=== PATIENT | male | born 1950 | race Caucasian/White ===

== ENCOUNTER 2016-11-23 09:50 | Emergency (ER) | payer MEDICARE, BC ==
[2016-11-23 10:01] VITALS: BP 143/73
--- NOTE | 2016-11-23 10:36 | EDM.PDOC ---
ED HPI RENAL/ - General Chief Complaint: Genitourinary Problem Stated Complaint: DIZZY, BACK PAIN, BURNING WITH URINATION Time Seen by Provider: 11/23/16 10:25 Source of Information: Reports: Patient History Limitations: Reports: No limitations - History of Present Illness INITIAL COMMENTS - FREE TEXT/NARRATIVE: States that for the last week he has noted left low back pain that will radiate into the left groin at times. Pain will at times change with position changes but not all the time. No blood noted in the urine but has noted burning with urination over the last week that seems to be getting worse. Will feel lightheaded and dizzy at times when getting up. No fever that he knows of. No nausea or diarrhea with it. Location: Reports: groin, flank Quality: Reports: burning Associated Symptoms: Reports: burning. Denies: fever/chills, nausea/vomiting, diarrhea - Related Data Allergies/ADRs: Allergies Allergy/AdvReac Type Severity Reaction Status Date / Time Penicillins Allergy Swelling Verified 11/23/16 10:24 Home Meds: Home Meds Allopurinol [Zyloprim] 300 mg PO Q48H 07/20/13 [History] Ascorbic Acid [Vitamin C] 1,000 mg PO DAILY 07/20/13 [History] Aspirin [Adult Low Dose Aspirin EC] 81 mg PO DAILY 07/20/13 [History] Digoxin [Lanoxin] 250 mcg PO DAILY 07/20/13 [History] Etodolac 400 mg PO BID 07/20/13 [History] Lisinopril [Zestril] 2.5 mg PO DAILY 07/20/13 [History] Simvastatin [Zocor] 20 mg PO DAILY 07/20/13 [History] Cholecalciferol (Vitamin D3) [Vitamin D3] 2,000 unit PO DAILY 11/23/16 [History] metFORMIN HCl [Metformin HCl] 500 mg PO BID 11/23/16 [History] Past Medical History HEENT History: Reports: Impaired vision Cardiovascular History: Reports: High cholesterol, Hypertension, Other (see below) Other Cardiovascular History: IRREGULAR HEART BEAT Genitourinary History: Reports: Pyelonephritis Musculoskeletal History: Reports: Gout, Other (see below) Other Musculoskeletal History: ANKYLOSING SPONDYLITIS Endocrine/Metabolic History: Reports: Diabetes, type II - Past Surgical History HEENT Surgical History: Reports: Cataract surgery GI Surgical History: Reports: Colonoscopy, EGD Musculoskeletal Surgical History: Reports: Other (see below) Other Musculoskeletal Surgeries/Procedures:: ELBOW SURGERY Social & Family History - Tobacco Use Smoking Status *Q: Never Smoker Second Hand Smoke Exposure: No - Caffeine Use Caffeine Use: Reports: Coffee - Alcohol Use Days Per Week of Alcohol Use: 0 - Recreational Drug Use Recreational Drug Use: No ED ROS GENERAL - Review of Systems Review Of Systems: See Below Constitutional: Denies: fever HEENT: Denies: Ear discharge, Ear pain, Vision change Respiratory: Denies: Shortness of Breath, Cough Cardiovascular: Reports: Lightheadedness. Denies: Chest pain GI/Abdominal: Reports: Other (see HPI) : Reports: dysuria, flank pain. Denies: hematuria Musculoskeletal: Reports: back pain Skin: Denies: rash ED EXAM, RENAL/ - Physical Exam Exam: See Below Exam Limited By: No limitations General Appearance: alert, WD/WN, mild distress Ears: normal external exam, normal canal, normal TMs Nose: normal inspection Throat/Mouth: Normal inspection, Normal oropharynx, No airway compromise Head: atraumatic, normocephalic Neck: normal inspection, supple, non-tender, full range of motion Respiratory/Chest: no respiratory distress, lungs clear, normal breath sounds Cardiovascular: normal peripheral pulses, regular rate, rhythm, no murmur GI/Abdominal: normal bowel sounds, soft, non tender, no organomegaly. No: guarding, rebound, tender Back Exam: normal inspection, full range of motion, other (tender to the lower right back with some radiation to the right lower abdomen and groin at times.) Extremities: normal inspection, non-tender, no pedal edema, normal capillary refill Neurological: alert, oriented Skin Exam: Warm, Dry, Intact Course - Vital Signs Last Recorded V/S: Last Vital Signs Temp 96.8 F 11/23/16 09:55 Pulse 56 L 11/23/16 09:55 Resp 16 11/23/16 09:55 BP 143/73 H 11/23/16 09:55 Pulse Ox 98 11/23/16 09:55 - Orders/Labs/Meds Orders: Active Orders 24 hr Category Date Time Status BASIC METABOLIC PANEL,BMP [CHEM] Stat Lab 11/23/16 10:11 Ordered CBC WITH AUTO DIFF [HEME] Stat Lab 11/23/16 10:11 Ordered CREATINE KINASE,CK [CHEM] Stat Lab 11/23/16 10:11 Ordered TROPONIN I [CHEM] Stat Lab 11/23/16 10:11 Ordered UA W/MICROSCOPIC [URIN] Stat Lab 11/23/16 10:03 Ordered EKG 12 Lead [EK] Routine Ther 11/23/16 10:11 Ordered Departure - Departure Time of Disposition: 10:55 Disposition: Home, Self-Care 01 Condition: good Clinical Impression: Back muscle spasm Referrals: PCP,None [Primary Care Provider] - Forms: ED Department Discharge Additional Instructions: Appt with Physical therapy at 1 Use the muscle relaxants that you have at home Recheck with the eye DrGold to adjust glasses Follow up in the clinic if not improved after above - My Orders Last 24 Hours: My Active Orders 11/23/16 10:03 UA W/MICROSCOPIC [URIN] Stat 11/23/16 10:11 BASIC METABOLIC PANEL,BMP [CHEM] Stat CBC WITH AUTO DIFF [HEME] Stat CREATINE KINASE,CK [CHEM] Stat TROPONIN I [CHEM] Stat EKG 12 Lead [EK] Routine - Assessment/Plan Last 24 Hours: My Active Orders 11/23/16 10:03 UA W/MICROSCOPIC [URIN] Stat 11/23/16 10:11 BASIC METABOLIC PANEL,BMP [CHEM] Stat CBC WITH AUTO DIFF [HEME] Stat CREATINE KINASE,CK [CHEM] Stat TROPONIN I [CHEM] Stat EKG 12 Lead [EK] Routine
[2016-11-23 10:41] LABS: CHLORIDE,CL 106 mEq/L (98-106); SODIUM,NA 141 mEq/L (136-145)
== END 2016-11-23 11:00 | disposition home or self-care (01) ==
LOC: CC.ED 09:50
DX: M62.830 Muscle spasm of back (principal); E78.00 Pure hypercholesterolemia, unspecified; I10 Essential (primary) hypertension; E11.9 Type 2 diabetes mellitus without complications; Z88.0 Allergy status to penicillin; Z79.82 Long term (current) use of aspirin; Z79.899 Other long term (current) drug therapy; Z98.49 Cataract extraction status, unspecified eye
CPT/HCPCS: 36415; 80048; 81001; 82550; 84484; 85025; 93005; 93010; 99284

== ENCOUNTER 2017-10-18 18:42 | Observation (INO) | payer MEDICARE, BC ==
[2017-10-18 19:18] LABS: CHLORIDE,CL 104 mEq/L (98-106); SODIUM,NA 143 mEq/L (136-145)
--- NOTE | 2017-10-18 19:20 | EDM.PDOC ---
ED HPI GENERAL MEDICAL PROBLEM - General Chief Complaint: Respiratory Problem Stated Complaint: sob Time Seen by Provider: 10/18/17 19:00 Source of Information: Reports: Patient History Limitations: Reports: No Limitations - History of Present Illness INITIAL COMMENTS - FREE TEXT/NARRATIVE: Patient presents to ER with complaints of tightness in his chest and shortness of breath. States has had intermittent episodes today where he feels a tightness in his upper chest and can't get enough air in. He denies radiation of the pain. No increase in edema. Has not had much for sinus congestion or cough. Has been sneezing more than usual. Had an EKG done in July at the [facility] which did show sinus bradycardia. Did a digoxin level at that time which was normal. Patient has been on digoxin for "30 years" for atrial fib as he declined going on Coumadin. States the [facility] does not support. Was advised to watch his pulse, blood pressure and follow up with PCP. He states it has been stable. No nausea/vomiting/diarrhea or constipation. No urinary concerns. Onset: Gradual Duration: Waxing/Waning Location: Reports: Chest Quality: Reports: Pressure Severity: Mild Associated Symptoms: Reports: Chest Pain, Shortness of Breath. Denies: Cough, Headaches, Loss of Appetite, Nausea/Vomiting - Related Data Allergies Allergy/AdvReac Type Severity Reaction Status Date / Time Penicillins Allergy Swelling Verified 10/18/17 18:54 Home Meds: Home Meds Allopurinol [Zyloprim] 300 mg PO Q48H 07/20/13 [History] Ascorbic Acid [Vitamin C] 1,000 mg PO DAILY 07/20/13 [History] Aspirin [Adult Low Dose Aspirin EC] 81 mg PO DAILY 07/20/13 [History] Digoxin [Lanoxin] 250 mcg PO DAILY 07/20/13 [History] Etodolac 400 mg PO BID 07/20/13 [History] Lisinopril [Zestril] 2.5 mg PO DAILY 07/20/13 [History] Simvastatin [Zocor] 20 mg PO DAILY 07/20/13 [History] Cholecalciferol (Vitamin D3) [Vitamin D3] 2,000 unit PO DAILY 11/23/16 [History] metFORMIN HCl [Metformin HCl] 500 mg PO BID 11/23/16 [History] Past Medical History HEENT History: Reports: Impaired Vision Cardiovascular History: Reports: High Cholesterol, Hypertension, Other (See Below) Other Cardiovascular History: IRREGULAR HEART BEAT Genitourinary History: Reports: Pyelonephritis Musculoskeletal History: Reports: Gout, Other (See Below) Other Musculoskeletal History: ANKYLOSING SPONDYLITIS Endocrine/Metabolic History: Reports: Diabetes, Type II - Past Surgical History HEENT Surgical History: Reports: Cataract Surgery GI Surgical History: Reports: Colonoscopy, EGD Musculoskeletal Surgical History: Reports: Other (See Below) Social & Family History - Tobacco Use Smoking Status *Q: Never Smoker Second Hand Smoke Exposure: No - Caffeine Use Caffeine Use: Reports: Coffee, Soda - Alcohol Use Days Per Week of Alcohol Use: 0 - Recreational Drug Use Recreational Drug Use: No ED ROS GENERAL - Review of Systems Review Of Systems: See Below Constitutional: Denies: Fever, Chills, Malaise, Weakness, Decreased Appetite HEENT: Reports: Rhinitis. Denies: Ear Pain, Sinus Problem, Throat Pain, Vertigo Respiratory: Reports: Shortness of Breath. Denies: Wheezing, Cough Cardiovascular: Reports: Chest Pain, Edema. Denies: Lightheadedness Endocrine: Denies: Fatigue GI/Abdominal: Denies: Abdominal Pain, Constipation, Diarrhea, Nausea, Vomiting : Reports: No Symptoms Musculoskeletal: Reports: No Symptoms Skin: Reports: No Symptoms Neurological: Reports: No Symptoms Psychiatric: Reports: No Symptoms ED EXAM, GENERAL - Physical Exam Exam: See Below Exam Limited By: No Limitations General Appearance: Alert, WD/WN, No Apparent Distress Ears: Normal External Exam, Normal TMs Nose: Normal Inspection, Normal Mucosa, No Blood Throat/Mouth: Normal Inspection, Normal Oropharynx Head: Normocephalic Neck: Normal Inspection, Supple, Non-Tender Respiratory/Chest: No Respiratory Distress, Lungs Clear, Normal Breath Sounds Cardiovascular: Regular Rate, Rhythm GI/Abdominal: Normal Bowel Sounds, Soft, Non-Tender Extremities: Normal Inspection, No Pedal Edema Neurological: Alert, Oriented Psychiatric: Normal Affect, Normal Mood Skin Exam: Warm, Dry Course - Vital Signs Last Recorded V/S: Last Vital Signs Temp 97.5 F 10/18/17 18:45 Pulse 51 L 10/18/17 19:41 Resp 18 10/18/17 18:45 BP 172/86 H 10/18/17 19:41 Pulse Ox 97 10/18/17 19:13 - Orders/Labs/Meds Orders: Active Orders 24 hr Category Date Time Status EKG Documentation Completion [RC] STAT Care 10/18/17 18:51 Active Chest 2V [CR] Stat Exams 10/18/17 18:53 Taken Labs: Laboratory Tests 10/18/17 10/18/17 10/18/17 Range/Units 18:45 18:45 18:45 WBC 6.8 (5.0-10.0) 10^3/uL RBC 4.94 (4.50-6.00) 10^6/uL Hgb 14.1 (14.0-18.0) g/dL Hct 43.2 (40.0-54.0) % MCV 87.4 (82.0-94.0) fL MCH 28.5 (27.0-32.0) pg MCHC 32.6 L (33.0-38.0) g/dL RDW Coeff of Twan 14.3 (11.0-15.0) % Plt Count 127 L (150-400) 10^3/uL Neut % (Auto) 65.8 (35-85) % Lymph % (Auto) 22.7 (10-55) % Morgan % (Auto) 7.8 (0-16) % Eos % (Auto) 3.4 (0-5) % Baso % (Auto) 0.3 (0-3) % Neut # (Auto) 4.46 (1.80-7.00) 10^3/uL Lymph # (Auto) 1.54 (1.00-4.80) 10^3/uL Morgan # (Auto) 0.53 (0.00-0.80) 10^3/uL Eos # (Auto) 0.23 (0.00-0.45) 10^3/uL Baso # (Auto) 0.02 10^3/uL PT 9.5 L (9.7-12.3) SEC INR 0.91 L (0.92-1.18) APTT 24.7 (24.5-30.9) SEC D-Dimer, Quantitative 0.38 (0.00-0.50) Sodium 143 (136-145) mEq/L Potassium 4.0 (3.5-5.0) mEq/L Chloride 104 (98-106) mEq/L Carbon Dioxide 30 (21-32) mmol/L BUN 26 H (7-18) mg/dL Creatinine 1.1 (0.7-1.3) mg/dL Est Cr Clr Drug Dosing 99.62 mL/min Estimated GFR (MDRD) > 60 (>=60) mL/min Glucose 164 H D (75-99) mg/dL Calcium 8.6 (8.4-10.1) mg/dL Lactate Dehydrogenase 121 (100-190) U/L Creatine Kinase 82 (35-232) U/L Troponin I < 0.017 (0.00-0.06) ng/mL NT-Pro-B Natriuret Pep 59 (0-1000) pg/mL Digoxin (0.9-2.0) ng/mL 10/18/17 Range/Units 19:02 WBC (5.0-10.0) 10^3/uL RBC (4.50-6.00) 10^6/uL Hgb (14.0-18.0) g/dL Hct (40.0-54.0) % MCV (82.0-94.0) fL MCH (27.0-32.0) pg MCHC (33.0-38.0) g/dL RDW Coeff of Twan (11.0-15.0) % Plt Count (150-400) 10^3/uL Neut % (Auto) (35-85) % Lymph % (Auto) (10-55) % Morgan % (Auto) (0-16) % Eos % (Auto) (0-5) % Baso % (Auto) (0-3) % Neut # (Auto) (1.80-7.00) 10^3/uL Lymph # (Auto) (1.00-4.80) 10^3/uL Morgan # (Auto) (0.00-0.80) 10^3/uL Eos # (Auto) (0.00-0.45) 10^3/uL Baso # (Auto) 10^3/uL PT (9.7-12.3) SEC INR (0.92-1.18) APTT (24.5-30.9) SEC D-Dimer, Quantitative (0.00-0.50) Sodium (136-145) mEq/L Potassium (3.5-5.0) mEq/L Chloride (98-106) mEq/L Carbon Dioxide (21-32) mmol/L BUN (7-18) mg/dL Creatinine (0.7-1.3) mg/dL Est Cr Clr Drug Dosing mL/min Estimated GFR (MDRD) (>=60) mL/min Glucose (75-99) mg/dL Calcium (8.4-10.1) mg/dL Lactate Dehydrogenase (100-190) U/L Creatine Kinase (35-232) U/L Troponin I (0.00-0.06) ng/mL NT-Pro-B Natriuret Pep (0-1000) pg/mL Digoxin 0.7 L (0.9-2.0) ng/mL - Re-Assessments/Exams Free Text/Narrative Re-Assessment/Exam: 10/18/17 Labs are negative at this time. Note marked bradycardia and hypertension. Will admit observation and repeat cardiac enzymes at 2300 and in am. Hold digoxin. Consider stress test. Departure - Departure Time of Disposition: 19:47 Disposition: Refer to Observation Condition: Good Clinical Impression: Chest pain, Bradycardia - Discharge Information Referrals: Palma Velazquez PA [Primary Care Provider] - Forms: ED Department Discharge - Problem List & Annotations (1) Bradycardia SNOMED Code(s): 74648284 Code(s): R00.1 - BRADYCARDIA, UNSPECIFIED Status: Acute Priority: High (2) Chest pain SNOMED Code(s): 41200462 Code(s): R07.9 - CHEST PAIN, UNSPECIFIED Status: Acute Priority: High - Problem List Review Problem List Initiated/Reviewed/Updated: Yes - My Orders Last 24 Hours: My Active Orders 10/18/17 18:51 EKG Documentation Completion [RC] STAT 10/18/17 18:53 Chest 2V [CR] Stat - Assessment/Plan Admission H&P: Please use this note as an admission H&P Last 24 Hours: My Active Orders 10/18/17 18:51 EKG Documentation Completion [RC] STAT 10/18/17 18:53 Chest 2V [CR] Stat Assessment:: Chest Pain Bradycardia Plan: Patient admitted to observation for chest pain and repeat cardiac enzymes at 2300 tonight and in am. Hold digoxin. Consider stress test. Amlodipine 5 mg dose tonight for blood pressure.
[2017-10-18] MEDS ORDERED: Sodium Chloride 0.9% 10 ML Syringe FLUSH PRN (22:13)
[2017-10-18] MEDS ORDERED: Ondansetron 4 MG Tab.DIS PO PRN (22:13)
[2017-10-18] MEDS ORDERED: Ondansetron 4 MG/2 ML SDV IV PRN (22:13)
[2017-10-18] MEDS ORDERED: **PTOM** Allopurinol 300 MG Tab PO SCH (22:13)
[2017-10-18] MEDS ORDERED: Magnesium Hydroxide 400 MG/5 ML Susp 30 ML Cup PO PRN (22:13)
[2017-10-18] MEDS ORDERED: Acetaminophen 325 MG Tab PO PRN (22:13)
[2017-10-18] MEDS ORDERED: Morphine 2 MG/ML Syringe IVPUSH PRN (22:13)
[2017-10-18] MEDS ORDERED: Temazepam 15 MG Cap PO PRN (22:13)
[2017-10-19 07:16] VITALS: BP 139/72
[2017-10-19] MEDS ORDERED: **PTOM** Cholecalciferol (Vitamin D3) 1,000 Unit Tab PO SCH (08:00)
[2017-10-19] MEDS ORDERED: LISINOPRIL 5 MG PO SCH (08:00)
[2017-10-19] MEDS ORDERED: **PTOM** metFORMIN 500 MG Tab PO SCH (08:00)
[2017-10-19] MEDS ORDERED: ASCORBIC ACID 500 MG PO SCH (08:00)
[2017-10-19] MEDS ORDERED: **PTOM** Aspirin 81 MG Tab.EC PO SCH (08:00)
[2017-10-19] MEDS ORDERED: ETODOLAC 400 MG PO SCH (08:00)
[2017-10-19] MEDS ORDERED: SIMVASTATIN 20 MG PO SCH (08:00)
--- NOTE | 2017-10-19 12:22 | PCM.DCSUM1 ---
Discharge Summary - Hospital Course Free Text/Narrative:: Patient presented to ED last evening with chest tightness and shortness of breath. States felt like couldn't "get enough air in". Patient was noted to be in marked bradycardia. Has been on digoxin for years and notes over the last few months, pulse has been running in the 50s but has tolerated this well. Had an EKG in July with his provider at the [facility] and noted rate of 50 at that time, dig level was normal. Advised to follow this trend. Continues to have a rate in the 50s and a normal BP. However, he has not experienced this type of discomfort or shortness of breath until today. Initial cardiac work up in the ER was negative. Systolic blood pressure high. Admitted for serial enzymes, telemetry, held digoxin. - Discharge Data Discharge Date: 10/19/17 Discharge Disposition: Home, Self-Care 01 Condition: Good - Discharge Diagnosis/Problem(s) (1) Bradycardia SNOMED Code(s): 77190188 ICD Code: R00.1 - BRADYCARDIA, UNSPECIFIED Status: Acute Priority: High (2) Chest pain SNOMED Code(s): 81444682 ICD Code: R07.9 - CHEST PAIN, UNSPECIFIED Status: Acute Priority: High - Patient Summary/Data Complications: none Hospital Course: Patient denies chest pain now this am except with movement. No further shortness of breath. Cardiac monitoring has continued to show bradycardia. Blood pressure has improved, now normotensive. He has been up and around in the room and tolerated well. Labs continue to show normal cardiac enzymes. EKG unchanged. Did require oxygen during the night, patient without his CPAP machine. Will discharge home. Hold digoxin for marked bradycardia as was initially placed on this for atrial fib and has not been noted to have this rhythm. Cardiolyte stress test next , follow up in clinic fo results and reevaluation of heart rate after. - Patient Instructions Diet: Diabetic Diet Activity: As Tolerated Other/Special Instructions: Cardiolyte stress test next October [address] Rhodes - Discharge Plan Home Medications: Home Meds Allopurinol [Zyloprim] 300 mg PO Q48H 07/20/13 [History] Ascorbic Acid [Vitamin C] 1,000 mg PO DAILY 07/20/13 [History] Aspirin [Adult Low Dose Aspirin EC] 81 mg PO DAILY 07/20/13 [History] Etodolac 400 mg PO BID 07/20/13 [History] Lisinopril [Zestril] 2.5 mg PO DAILY 07/20/13 [History] Simvastatin [Zocor] 20 mg PO DAILY 07/20/13 [History] Cholecalciferol (Vitamin D3) [Vitamin D3] 2,000 unit PO DAILY 11/23/16 [History] metFORMIN HCl [Metformin HCl] 500 mg PO BID 11/23/16 [History] Forms: ED Department Discharge Referrals: Palma Velazquez PA [Primary Care Provider] - (Follow up in 2 weeks with [facility]) - Discharge Summary/Plan Comment DC Time >30 min.: No Discharge Summary/Plan Comment: Discharge home Hold digoxin Cardiolyte next week Follow up in clinic after - General Info Date of Service: 10/19/17 Admission Dx/Problem (Free Text: Bradycardia Chest Pain Functional Status: Reports: Pain Controlled, Tolerating Diet, Ambulating - Review of Systems General: Denies: Fever, Weakness, Fatigue HEENT: Reports: No Symptoms Pulmonary: Denies: Shortness of Breath, Cough Cardiovascular: Reports: Chest Pain. Denies: Edema, Lightheadedness Gastrointestinal: Denies: Abdominal Pain, Nausea, Vomiting Genitourinary: Reports: No Symptoms Musculoskeletal: Reports: No Symptoms Skin: Reports: No Symptoms Neurological: Reports: No Symptoms - Patient Data Vitals - Most Recent: Last Vital Signs Temp 96.9 F 10/19/17 07:13 Pulse 47 L 10/19/17 07:13 Resp 20 10/19/17 07:13 BP 139/72 10/19/17 07:13 Pulse Ox 99 10/19/17 07:13 Weight - Most Recent: 245 lb Lab Results - Last 24 hrs: Laboratory Results - last 24 hr 10/18/17 10/19/17 Range/Units 22:20 07:15 Lactate Dehydrogenase 120 108 (100-190) U/L Creatine Kinase 77 65 (35-232) U/L Troponin I < 0.017 < 0.017 (0.00-0.06) ng/mL Med Orders - Current: Current Medications Discontinued Medications Acetaminophen (Tylenol) 650 mg PO Q4H PRN PRN Reason: Pain (Mild 1-3)/fever Allopurinol (Zyloprim) 300 mg PO Q48H DANNY Last Admin: 10/18/17 22:23 Dose: Not Given Ascorbic Acid (Vitamin C) 1,000 mg PO DAILY [facility] Last Admin: 10/19/17 08:32 Dose: 1,000 mg Aspirin (Halfprin) 81 mg PO DAILY [facility] Last Admin: 10/19/17 08:31 Dose: 81 mg Cholecalciferol (Vitamin D3) 2,000 units PO DAILY [facility] Last Admin: 10/19/17 08:29 Dose: 2,000 units Lisinopril (Prinivil) 2.5 mg PO DAILY [facility] Last Admin: 10/19/17 08:31 Dose: 2.5 mg Magnesium Hydroxide (Milk Of Magnesia) 30 ml PO Q12H PRN PRN Reason: Constipation Metformin HCl (Glucophage) 500 mg PO BIDMEALS [facility] Last Admin: 10/19/17 08:30 Dose: 500 mg Morphine Sulfate (Morphine) 1 - 2 mg IVPUSH Q2H PRN PRN Reason: Pain (severe 7-10) Ptom Etodolac [ (Etodolac] 400 Mg) 400 mg PO BID [facility] Last Admin: 10/19/17 08:32 Dose: 400 mg Ondansetron HCl (Zofran Odt) 4 mg PO Q4H PRN PRN Reason: nausea, able to take PO Ondansetron HCl (Zofran) 4 mg IV Q4H PRN PRN Reason: Nausea/Vomiting Simvastatin (Zocor) 20 mg PO DAILY [facility] Last Admin: 10/19/17 08:30 Dose: 20 mg Sodium Chloride (Saline Flush) 10 ml FLUSH ASDIRECTED PRN PRN Reason: Keep Vein Open Temazepam (Restoril) 15 mg PO BEDTIME PRN PRN Reason: Sleep - Exam General: Reports: Alert, Oriented HEENT: Reports: Mucous Membr. Moist/[place] Neck: Reports: Supple Lungs: Reports: Clear to Auscultation, Normal Respiratory Effort Cardiovascular: Reports: Regular Rhythm, Bradycardia GI/Abdominal Exam: Normal Bowel Sounds, Soft, Non-Tender Extremities: No Pedal Edema Skin: Reports: Warm, Dry Neurological: Reports: No New Focal Deficit *Q Meaningful Use (DIS) - VTE *Q VTE Criteria *Q: - Stroke *Q Stroke Criteria *Q: - AMI *Q AMI Criteria *Q:
== END 2017-10-19 10:35 | disposition home or self-care (01) ==
LOC: CC.ED 18:42 → CC.MS 19:40 → CC.ED 19:40 → UNDOADMOB 19:40 → CC.MS 22:13
PROVIDERS: ADMIT Physician Assistant Medical; ATTEND Family Medicine
DX: R00.1 Bradycardia, unspecified (principal); R07.9 Chest pain, unspecified; I10 Essential (primary) hypertension; E78.00 Pure hypercholesterolemia, unspecified; E11.9 Type 2 diabetes mellitus without complications; Z79.82 Long term (current) use of aspirin; Z79.899 Other long term (current) drug therapy; Z88.0 Allergy status to penicillin
CPT/HCPCS: 36415; 71046; 80048; 80162; 82550; 83615; 83880; 84484; 85025; 85379; 85610; 85730; 93005; 99285; A9270-GY; G0378

== ENCOUNTER → 2018-09-02 | Day surgery (SDC) | payer MEDICARE, BC ==
[~2018-09-02] MED LIST: Glycopyrrolate 0.2 MG/ML SDV IVPUSH ONE; Propofol 200 MG/20 ML SDV IV ONE; ePHEDrine 50 MG/ML SDV IV ONE
[2018-09-02] MEDS: Lactated Ringers 1,000 ML IV SCH (08:24)
[2018-09-02 10:13] VITALS: BP 142/75
--- NOTE | 2018-09-02 11:24 | OR ---
DATE OF OPERATION: 09/02/2018 PREOPERATIVE DIAGNOSIS: FAMILY HISTORY OF COLON CANCER. POSTOPERATIVE DIAGNOSIS: FAMILY HISTORY OF COLON CANCER. SURGEON: Diego Rhodes MD PROCEDURE: FULL-LENGTH COLONOSCOPY. 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 COMPLICATIONS: None. SPECIMEN: None. FINDINGS: 1. Full-length colonoscopy. 2. Mild sigmoid diverticulosis. RECOMMENDATIONS: Followup colonoscopy every 5 years. INDICATIONS: The patient has a family history of colon cancer. His last colonoscopy was just over 5 years ago. DESCRIPTION OF PROCEDURE: The patient was prepped and draped, placed in the left lateral decubitus position. A lubricated Olympus colonoscope was inserted and easily advanced to the cecum. Direct visualization of the ileocecal valve and appendiceal orifice was accomplished. Bowel prep was fine. Upon withdrawal of the scope, throughout the entire length of the colon, I could find no signs of any polyps, mass, ulceration, or bleeding sites. No vascular abnormalities or signs of colitis. There were scattered diverticula in the sigmoid area, mild in severity. The rectal vault was benign. Retroflexion was unable to be accomplished due to the volume of stool in the rectum and we could not suction most of this due to most of it being solid, however, the rest of the colon had an adequate prep. Air was suctioned, scope removed without complication. DENIA/SHORTY /[id number]
== END ==
LOC: CC.SDS 07:31
PROVIDERS: ATTEND Family Medicine
DX: Z12.11 Encounter for screening for malignant neoplasm of colon (principal); K57.30 Diverticulosis of large intestine without perforation or abscess without bleeding; Z80.0 Family history of malignant neoplasm of digestive organs
CPT/HCPCS: 93005; J7120

== ENCOUNTER 2018-10-20 16:00 | Emergency (ER) | payer MEDICARE, BC ==
--- NOTE | 2018-10-20 17:27 | EDM.PDOC ---
ED HPI GENERAL MEDICAL PROBLEM - General Chief Complaint: General Stated Complaint: headache, sob Time Seen by Provider: 10/20/18 16:40 Source of Information: Reports: Patient, Family () - History of Present Illness INITIAL COMMENTS - FREE TEXT/NARRATIVE: states that at 0330 this AM he was up to the BR without any problems and was fine. sort time later his stomach was upset. about 1000 this AM he had normal BM and abd pain went away. He since has not ate or drank anything today as she didn't want to have to vomit if the abdominal pain came back. Feels SOB and lightheaded. Had 2 episodes of chest pain that lasted "seconds". He has not vomited. Also states that he has been getting headaches the last 2-3 days which is unusual for him. He denies any visual changes with it. States it is throbbing. When laying down he did state that the posterior headache did go away but still had the frontal sinus headache that he gets at times. Onset: Today Location: Reports: Generalized Head Pain Score (Numeric/FACES): 9 - Related Data Allergies Allergy/AdvReac Type Severity Reaction Status Date / Time Penicillins Allergy Swelling Verified 10/20/18 16:35 Home Meds: Home Meds Allopurinol [Zyloprim] 300 mg PO Q48H 07/20/13 [History] Ascorbic Acid [Vitamin C] 1,000 mg PO DAILY 07/20/13 [History] Aspirin [Adult Low Dose Aspirin EC] 81 mg PO DAILY 07/20/13 [History] Etodolac 400 mg PO BID 07/20/13 [History] Lisinopril [Zestril] 2.5 mg PO DAILY 07/20/13 [History] Simvastatin [Zocor] 20 mg PO DAILY 07/20/13 [History] Cholecalciferol (Vitamin D3) [Vitamin D3] 2,000 unit PO DAILY 11/23/16 [History] metFORMIN HCl [Metformin HCl] 500 mg PO BID 11/23/16 [History] Cyanocobalamin (Vitamin B-12) [Vitamin B-12] 100 mcg PO DAILY 08/30/18 [History] Hydrocortisone [Procto-Med Hc] 1 applic RECTAL ASDIRECTED 08/30/18 [History] Past Medical History HEENT History: Reports: Impaired Vision Cardiovascular History: Reports: High Cholesterol, Hypertension Other Cardiovascular History: IRREGULAR HEART BEAT Respiratory History: Reports: Sleep Apnea Other Respiratory History: cpap Gastrointestinal History: Reports: Diverticulosis Other Gastrointestinal History: has been hospitalized d/t twisting of bowel Genitourinary History: Reports: Pyelonephritis Musculoskeletal History: Reports: Gout, Other (See Below) Other Musculoskeletal History: ANKYLOSING SPONDYLITIS Endocrine/Metabolic History: Reports: Diabetes, Type II Dermatologic History: Reports: Other (See Below) Other Dermatologic History: lumpectomy of left armpit area - Past Surgical History HEENT Surgical History: Reports: Cataract Surgery GI Surgical History: Reports: Colonoscopy, EGD Musculoskeletal Surgical History: Reports: Other (See Below) Social & Family History - Family History Family Medical History: Noncontributory - Tobacco Use Smoking Status *Q: Never Smoker - Caffeine Use Caffeine Use: Reports: Soda - Recreational Drug Use Recreational Drug Use: No - Living Situation & Occupation Living situation: Reports: , with Spouse Occupation: Retired ED ROS GENERAL - Review of Systems Review Of Systems: See Below Constitutional: Reports: Weakness. Denies: Fever, Chills HEENT: Reports: No Symptoms. Denies: Vision Change Respiratory: Reports: Shortness of Breath. Denies: Cough Cardiovascular: Reports: Other (see HPI) Endocrine: Reports: No Symptoms GI/Abdominal: Reports: Other (see HPI) : Reports: No Symptoms Musculoskeletal: Reports: Back Pain Skin: Reports: No Symptoms Neurological: Reports: Headache, Weakness ED EXAM, GENERAL - Physical Exam Exam: See Below Exam Limited By: No Limitations General Appearance: Alert, WD/WN, Mild Distress Eye Exam: Bilateral Eye: PERRL Ears: Normal External Exam, Normal Canal Nose: Normal Inspection Throat/Mouth: Normal Inspection, Normal Oropharynx, No Airway Compromise Head: Atraumatic, Normocephalic Neck: Normal Inspection, Supple, Non-Tender, Full Range of Motion Respiratory/Chest: No Respiratory Distress, Lungs Clear, Normal Breath Sounds, Chest Non-Tender Cardiovascular: Regular Rate, Rhythm, No Edema GI/Abdominal: Normal Bowel Sounds, Soft, Non-Tender, No Organomegaly. No: Guarding, Rigid Back Exam: Normal Inspection, Full Range of Motion Extremities: Normal Inspection, Non-Tender, No Pedal Edema, Normal Capillary Refill Neurological: Alert, Oriented Skin Exam: Warm, Dry, Intact Course - Vital Signs Last Recorded V/S: Last Vital Signs Temp 101.1 F H 10/20/18 18:40 Pulse 100 10/20/18 19:19 Resp 20 10/20/18 19:19 BP 114/72 10/20/18 19:19 Pulse Ox 93 L 10/20/18 19:19 - Orders/Labs/Meds Orders: Active Orders 24 hr Category Date Time Status EKG Documentation Completion [RC] STAT Care 10/20/18 16:38 Active Ang Chest [CT] Stat Exams 10/20/18 17:38 Taken Chest 2V [CR] Stat Exams 10/20/18 16:36 Taken Sodium Chloride 0.9% [Normal Saline] 1,000 ml Med 10/20/18 17:30 Active IV ASDIRECTED Medication Orders Sodium Chloride (Normal Saline) 1,000 mls @ 100 mls/hr IV ASDIRECTED DANNY Last Admin: 10/20/18 17:42 Dose: 100 mls/hr Labs: Laboratory Tests 10/20/18 10/20/18 10/20/18 Range/Units 16:37 16:37 16:37 WBC 11.6 H (5.0-10.0) 10^3/uL RBC 5.64 (4.50-6.00) 10^6/uL Hgb 16.6 (14.0-18.0) g/dL Hct 49.8 (40.0-54.0) % MCV 88.3 (82.0-94.0) fL MCH 29.4 (27.0-32.0) pg MCHC 33.3 (33.0-38.0) g/dL RDW Coeff of Twan 14.6 (11.0-15.0) % Plt Count 144 L (150-400) 10^3/uL Neut % (Auto) 93.5 H (35-85) % Lymph % (Auto) 1.4 L (10-55) % [place] % (Auto) 4.9 (0-16) % Eos % (Auto) 0.1 (0-5) % Baso % (Auto) 0.1 (0-3) % Neut # (Auto) 10.84 H (1.80-7.00) 10^3/uL Lymph # (Auto) 0.16 L (1.00-4.80) 10^3/uL [place] # (Auto) 0.57 (0.00-0.80) 10^3/uL Eos # (Auto) 0.01 (0.00-0.45) 10^3/uL Baso # (Auto) 0.01 10^3/uL PT 10.3 (9.7-12.3) SEC INR 0.99 (0.92-1.18) D-Dimer, Quantitative 1.81 H (0.00-0.50) Sodium 143 (136-145) mEq/L Potassium 4.5 (3.5-5.0) mEq/L Chloride 105 (98-106) mEq/L Carbon Dioxide 27 (21-32) mmol/L BUN 32 H (7-18) mg/dL Creatinine 1.2 (0.7-1.3) mg/dL Est Cr Clr Drug Dosing 60.08 mL/min Estimated GFR (MDRD) 60 (>=60) mL/min Glucose 161 H D (75-99) mg/dL Calcium 8.5 (8.4-10.1) mg/dL Lactate Dehydrogenase 140 (100-190) U/L Creatine Kinase 119 (35-232) U/L Troponin I (0.00-0.06) ng/mL C-Reactive Protein 6.4 H (0.2-0.8) mg/dL Urine Color (YELLOW) Urine Appearance (CLEAR) Urine pH (4.5-8.0) Ur Specific [place] (1.003-1.020) Urine Protein (NEGATIVE) mg/dL Urine Glucose (UA) (NEGATIVE) mg/dL Urine Ketones (NEGATIVE) mg/dL Urine Occult Blood (NEGATIVE) Urine Nitrite (NEGATIVE) Urine Bilirubin (NEGATIVE) Urine Urobilinogen (0.2-1.0) EU/dL Ur Leukocyte Esterase (NEGATIVE) Urine RBC (0-5) /HPF Urine WBC (0-5) /HPF 10/20/18 10/20/18 Range/Units 17:11 17:42 WBC (5.0-10.0) 10^3/uL RBC (4.50-6.00) 10^6/uL Hgb (14.0-18.0) g/dL Hct (40.0-54.0) % MCV (82.0-94.0) fL MCH (27.0-32.0) pg MCHC (33.0-38.0) g/dL RDW Coeff of Twan (11.0-15.0) % Plt Count (150-400) 10^3/uL Neut % (Auto) (35-85) % Lymph % (Auto) (10-55) % [place] % (Auto) (0-16) % Eos % (Auto) (0-5) % Baso % (Auto) (0-3) % Neut # (Auto) (1.80-7.00) 10^3/uL Lymph # (Auto) (1.00-4.80) 10^3/uL [place] # (Auto) (0.00-0.80) 10^3/uL Eos # (Auto) (0.00-0.45) 10^3/uL Baso # (Auto) 10^3/uL PT (9.7-12.3) SEC INR (0.92-1.18) D-Dimer, Quantitative (0.00-0.50) Sodium (136-145) mEq/L Potassium (3.5-5.0) mEq/L Chloride (98-106) mEq/L Carbon Dioxide (21-32) mmol/L BUN (7-18) mg/dL Creatinine (0.7-1.3) mg/dL Est Cr Clr Drug Dosing mL/min Estimated GFR (MDRD) (>=60) mL/min Glucose (75-99) mg/dL Calcium (8.4-10.1) mg/dL Lactate Dehydrogenase (100-190) U/L Creatine Kinase (35-232) U/L Troponin I < 0.017 (0.00-0.06) ng/mL C-Reactive Protein (0.2-0.8) mg/dL Urine Color Dark yellow (YELLOW) Urine Appearance Clear (CLEAR) Urine pH 5.0 (4.5-8.0) Ur Specific [place] 1.020 (1.003-1.020) Urine Protein Negative (NEGATIVE) mg/dL Urine Glucose (UA) Negative (NEGATIVE) mg/dL Urine Ketones Trace H (NEGATIVE) mg/dL Urine Occult Blood Negative (NEGATIVE) Urine Nitrite Negative (NEGATIVE) Urine Bilirubin Negative (NEGATIVE) Urine Urobilinogen 0.2 (0.2-1.0) EU/dL Ur Leukocyte Esterase Small H (NEGATIVE) Urine RBC 0-5 (0-5) /HPF Urine WBC 0-5 (0-5) /HPF Meds: Medications Generic Name Dose Route Start Last Admin Trade Name Gorge PRN Reason Stop Dose Admin Sodium Chloride 1,000 mls @ 100 mls/hr 10/20/18 17:30 10/20/18 17:42 Normal Saline IV 100 mls/hr ASDIRECTED DANNY Administration Discontinued Medications Generic Name Dose Route Start Last Admin Trade Name Gorge PRN Reason Stop Dose Admin Iopamidol 100 ml 10/20/18 17:55 10/20/18 18:30 Isovue-370 (76%) IVPUSH 10/20/18 17:56 100 ml ONETIME ONE Administration - Re-Assessments/Exams Free Text/Narrative Re-Assessment/Exam: 10/20/18 17:50 In to discuss labs with pt and except for elevated D- Dimer. Will do CT of chest to rule out PE. 10/20/18 20:[address] chest as negative. Will discharge pt home on BRAT diet. Departure - Departure Time of Disposition: 20:26 Disposition: Home, Self-Care 01 Clinical Impression: Gastroenteritis - Discharge Information *PRESCRIPTION DRUG MONITORING PROGRAM REVIEWED*: Not Applicable *COPY OF PRESCRIPTION DRUG MONITORING REPORT IN PATIENT HENRY: Not Applicable Referrals: PCP,Unknown [Primary Care Provider] - Forms: ED Department Discharge Additional Instructions: BRAT diet- Bananas, rice, applesauce and toast until feeling better. Drink fluids as much as tolerated to stay hydrated. recheck if not improved. - Problem List & Annotations (1) Gastroenteritis SNOMED Code(s): 56589025 Code(s): K52.9 - NONINFECTIVE GASTROENTERITIS AND COLITIS, UNSPECIFIED Status: Acute Priority: High Current Visit: Yes - Problem List Review Problem List Initiated/Reviewed/Updated: Yes - My Orders Last 24 Hours: My Active Orders 10/20/18 16:36 Chest 2V [CR] Stat 10/20/18 16:38 EKG Documentation Completion [RC] STAT 10/20/18 17:30 Sodium Chloride 0.9% [Normal Saline] 1,000 ml IV ASDIRECTED 10/20/18 17:38 Ang Chest [CT] Stat - Assessment/Plan Last 24 Hours: My Active Orders 10/20/18 16:36 Chest 2V [CR] Stat 10/20/18 16:38 EKG Documentation Completion [RC] STAT 10/20/18 17:30 Sodium Chloride 0.9% [Normal Saline] 1,000 ml IV ASDIRECTED 10/20/18 17:38 Ang Chest [CT] Stat
[2018-10-20] MEDS ORDERED: Sodium Chloride 0.9% 1,000 ML IV SCH (17:30)
[2018-10-20] MEDS ORDERED: Iopamidol 755 Mg/ML 100 ML Bottle IVPUSH ONE (17:55)
[2018-10-20 19:20] VITALS: BP 114/72
== END 2018-10-20 20:43 | disposition home or self-care (01) ==
LOC: CC.ED 16:00
DX: K52.9 Noninfective gastroenteritis and colitis, unspecified (principal); E78.00 Pure hypercholesterolemia, unspecified; I10 Essential (primary) hypertension; E11.9 Type 2 diabetes mellitus without complications; Z88.0 Allergy status to penicillin; Z79.899 Other long term (current) drug therapy; Z79.84 Long term (current) use of oral hypoglycemic drugs
CPT/HCPCS: 36415; 71046; 71275; 80048; 81001; 82550; 83615; 84484; 85025; 85379; 85610; 86140; 93005; 96360; 96361; 99285; J7030; Q9967

== ENCOUNTER 2019-02-24 12:53 | Emergency (ER) | payer MEDICARE, BC ==
[2019-02-24 13:09] VITALS: BP 124/74; PULSE 88
--- NOTE | 2019-02-24 13:19 | EDM.PDOC ---
ED HPI GENERAL MEDICAL PROBLEM - General Chief Complaint: Laceration Stated Complaint: LT INDEX FINGER/CUT Time Seen by Provider: 02/24/19 13:14 Source of Information: Reports: Patient History Limitations: Reports: No Limitations - History of Present Illness INITIAL COMMENTS - FREE TEXT/NARRATIVE: This patient is a 68 year old male that presents to the ER. Patient reports that he was cutting wire with a knife when he accidently cut his finger. Patietn reports the area cut his nail off and the cut will not stop bleeding. The patient reports he does take blood thinner and asa. Patient denies any other injury. Onset: Today Onset Date: 02/24/19 Onset Time: 12:00 Location: Reports: Upper Extremity, Left Front/Back Body Image: 1 - laceration, L 2nd Severity: Mild Improves with: Reports: None Worsens with: Reports: None Associated Symptoms: Denies: Confusion, Chest Pain, Cough, cough w sputum, Diaphoresis, Fever/Chills, Headaches, Loss of Appetite, Malaise, Nausea/Vomiting , Rash, Seizure, Shortness of Breath, Syncope, Weakness Left Finger-Index Pain Score (Numeric/FACES): 2 - Related Data Allergies Allergy/AdvReac Type Severity Reaction Status Date / Time Penicillins Allergy Swelling Verified 02/24/19 12:58 Home Meds: Home Meds Allopurinol [Zyloprim] 300 mg PO Q48H 07/20/13 [History] Ascorbic Acid [Vitamin C] 1,000 mg PO DAILY 07/20/13 [History] Aspirin [Adult Low Dose Aspirin EC] 81 mg PO DAILY 07/20/13 [History] Etodolac 400 mg PO BID 07/20/13 [History] Lisinopril [Zestril] 2.5 mg PO DAILY 07/20/13 [History] Simvastatin [Zocor] 20 mg PO DAILY 07/20/13 [History] Cholecalciferol (Vitamin D3) [Vitamin D3] 2,000 unit PO DAILY 11/23/16 [History] metFORMIN HCl [Metformin HCl] 500 mg PO BID 11/23/16 [History] Cyanocobalamin (Vitamin B-12) [Vitamin B-12] 100 mcg PO DAILY 08/30/18 [History] Hydrocortisone [Procto-Med Hc] 1 applic RECTAL ASDIRECTED 08/30/18 [History] Furosemide 20 mg PO DAILY 02/24/19 [History] Ubidecarenone [Co Q-10] 1 tab PO DAILY 02/24/19 [History] Past Medical History HEENT History: Reports: Impaired Vision Cardiovascular History: Reports: High Cholesterol, Hypertension Other Cardiovascular History: IRREGULAR HEART BEAT Respiratory History: Reports: Sleep Apnea Other Respiratory History: cpap Gastrointestinal History: Reports: Diverticulosis Other Gastrointestinal History: has been hospitalized d/t twisting of bowel Genitourinary History: Reports: Pyelonephritis Musculoskeletal History: Reports: Gout, Other (See Below) Other Musculoskeletal History: ANKYLOSING SPONDYLITIS Endocrine/Metabolic History: Reports: Diabetes, Type II Dermatologic History: Reports: Other (See Below) Other Dermatologic History: lumpectomy of left armpit area - Past Surgical History HEENT Surgical History: Reports: Cataract Surgery GI Surgical History: Reports: Colonoscopy, EGD Musculoskeletal Surgical History: Reports: Other (See Below) Social & Family History - Family History Family Medical History: Noncontributory - Tobacco Use Smoking Status *Q: Former Smoker Used Tobacco, but Quit: Yes Month/Year Tobacco Last Used: 50 - Caffeine Use Caffeine Use: Reports: None - Recreational Drug Use Recreational Drug Use: No - Living Situation & Occupation Living situation: Reports: , with Spouse Occupation: Retired ED ROS GENERAL - Review of Systems Review Of Systems: See Below Constitutional: Reports: No Symptoms HEENT: Reports: No Symptoms Respiratory: Reports: No Symptoms Cardiovascular: Reports: No Symptoms Endocrine: Reports: No Symptoms GI/Abdominal: Reports: No Symptoms : Reports: No Symptoms Musculoskeletal: Reports: No Symptoms Skin: Reports: Wound Neurological: Reports: No Symptoms Psychiatric: Reports: No Symptoms Hematologic/Lymphatic: Reports: No Symptoms Immunologic: Reports: No Symptoms ED EXAM, SKIN/RASH Exam: See Below Exam Limited By: No Limitations General Appearance: Alert, WD/WN, No Apparent Distress Head: Atraumatic, Normocephalic Respiratory/Chest: No Respiratory Distress Peripheral Pulses: 2+: Radial (L), Radial (R) Extremities: Normal Range of Motion, Non-Tender, No Pedal Edema, Normal Capillary Refill Neurological: Alert, Oriented Psychiatric: Normal Affect, Normal Mood Skin: Warm, Dry, Normal Color, No Rash, Wound/Incision (avulsion left 2nd digit tip, nail bed. Missing small section of the nail. Active bleeding. ROM intact. Neurovascular intact. Sensory/Motor function intact. No tendon involvement.) Location, Skin: Upper Extremity, Left ED SKIN PROCEDURES - Laceration/Wound Repair Left Digit - 2nd (Index) Appearance: Superficial Distal NVT: Neuro & Vascular Intact, No Tendon Injury Skin Prep: Chlorhexidine (Hibiciens) Saline Irrigation (cc's): 10 Exploration/Debridement/Repair: Wound Explored, In a Bloodless Field, Explored to Base, No Foreign Material Found Progress/Comments: No complications. Not suturable. Avulsed. Direct pressure for 10 minutes did not stop bleeding. Patient put finger in ice water for 5 minutes. Bleeding slowed down. Wound explored. Surgicel used to stop the bleeding, telfa, 2x2, kerlex dressing applied. Bleeding stopped. Course - Vital Signs Last Recorded V/S: Last Vital Signs Temp 97.7 F 02/24/19 13:05 Pulse 88 02/24/19 13:05 Resp 18 02/24/19 13:05 BP 124/74 02/24/19 13:05 Pulse Ox 96 02/24/19 13:05 Departure - Departure Time of Disposition: 13:42 Disposition: Home, Self-Care 01 Condition: Good Clinical Impression: Avulsion of skin of finger Qualifiers: Encounter type: initial encounter Qualified Code(s): S61.209A - Unspecified open wound of unspecified finger without damage to nail, initial encounter - Discharge Information *PRESCRIPTION DRUG MONITORING PROGRAM REVIEWED*: Not Applicable *COPY OF PRESCRIPTION DRUG MONITORING REPORT IN PATIENT HENRY: Not Applicable Instructions: Laceration Care, Adult, [id number] Referrals: Diego Rhodes MD [Primary Care Provider] - Forms: ED Department Discharge Additional Instructions: Followup with primary care provider as needed Return to the ER for worsening of condition or any emergent concerns. Or bleeding not controlled If bleeds again, apply direct pressure for 30 minutes. Hold above heart. May put in ice water to slow bleeding as well. If bleeding after 30 minute of direct pressure, return to the ER Change dressing after 48 hours, please be careful and run under water so gauze does not open the wound and cause bleeding After 48 hours, clean the wound with soap and water twice a day, gently. May apply neosporin. Keep wound clean Watch and return for signs of infection such as redness, drainage, fever, vomiting, - Assessment/Plan Plan: PLEASE SEE RN NOTE FOR PFSH.
== END 2019-02-24 14:02 | disposition home or self-care (01) ==
LOC: CC.ED 12:53 → SUPCPDRO 12:53 → CC.ED 14:02
DX: S61.301A Unspecified open wound of left index finger with damage to nail, initial encounter (principal); I10 Essential (primary) hypertension; E11.9 Type 2 diabetes mellitus without complications; E78.00 Pure hypercholesterolemia, unspecified; Z88.1 Allergy status to other antibiotic agents; Z79.899 Other long term (current) drug therapy; Z79.82 Long term (current) use of aspirin; Z79.84 Long term (current) use of oral hypoglycemic drugs; W26.0XXA Contact with knife, initial encounter
CPT/HCPCS: 99282; 99283

== ENCOUNTER 2019-03-23 16:21 | Emergency (ER) | payer MEDICARE, BC ==
[2019-03-23 16:47] VITALS: BP 133/62
--- NOTE | 2019-03-23 16:55 | EDM.PDOC ---
ED HPI GENERAL MEDICAL PROBLEM - General Chief Complaint: Back Pain or Injury Stated Complaint: FELL Time Seen by Provider: 03/23/19 16:39 Source of Information: Reports: Patient History Limitations: Reports: No Limitations - History of Present Illness INITIAL COMMENTS - FREE TEXT/NARRATIVE: Had stepped off a ladder and thinks he may have tripped over a cord and fell onto his buttocks, more onto the right hip area. Pain is in posterior hip and thoracic spine. He was able to get up and walk after this but has pain. No LOC. This occurred about 1430. Denies any numbness or tingling or radiation of the pain. GCS= 15 Onset: Today Onset Date: 03/23/19 Onset Time: 14:30 Location: Reports: Back, Other (right hip) Quality: Reports: Throbbing Right Lower Back Pain Score (Numeric/FACES): 8 - Related Data Allergies Allergy/AdvReac Type Severity Reaction Status Date / Time Penicillins Allergy Swelling Verified 03/23/19 16:31 Home Meds: Home Meds Allopurinol [Zyloprim] 300 mg PO Q48H 07/20/13 [History] Aspirin [Adult Low Dose Aspirin EC] 81 mg PO DAILY 07/20/13 [History] Etodolac 400 mg PO BID 07/20/13 [History] Lisinopril [Zestril] 2.5 mg PO DAILY 07/20/13 [History] metFORMIN HCl [Metformin HCl] 500 mg PO BID 11/23/16 [History] Cyanocobalamin (Vitamin B-12) [Vitamin B-12] 100 mcg PO DAILY 08/30/18 [History] Furosemide 20 mg PO DAILY 02/24/19 [History] Ubidecarenone [Co Q-10] 1 tab PO DAILY 02/24/19 [History] Cholecalciferol (Vitamin D3) [Vitamin D3] 1 units PO DAILY 03/23/19 [History] Rosuvastatin [Crestor] 10 mg PO DAILY 03/23/19 [History] Past Medical History HEENT History: Reports: Impaired Vision Cardiovascular History: Reports: High Cholesterol, Hypertension Other Cardiovascular History: IRREGULAR HEART BEAT Respiratory History: Reports: Sleep Apnea Other Respiratory History: cpap Gastrointestinal History: Reports: Diverticulosis Other Gastrointestinal History: has been hospitalized d/t twisting of bowel Genitourinary History: Reports: Pyelonephritis Musculoskeletal History: Reports: Gout, Other (See Below) Other Musculoskeletal History: ANKYLOSING SPONDYLITIS Endocrine/Metabolic History: Reports: Diabetes, Type II Dermatologic History: Reports: Other (See Below) Other Dermatologic History: lumpectomy of left armpit area - Past Surgical History HEENT Surgical History: Reports: Cataract Surgery GI Surgical History: Reports: Colonoscopy, EGD Musculoskeletal Surgical History: Reports: Other (See Below) Social & Family History - Family History Family Medical History: Noncontributory - Caffeine Use Caffeine Use: Reports: None - Living Situation & Occupation Living situation: Reports: , with Spouse Occupation: Retired ED ROS GENERAL - Review of Systems Review Of Systems: See Below Constitutional: Reports: No Symptoms HEENT: Reports: No Symptoms Respiratory: Reports: No Symptoms Cardiovascular: Reports: No Symptoms Musculoskeletal: Reports: Back Pain (thoracic spne, right hip/pelvis) Skin: Denies: Bruising, Wound Neurological: Reports: No Symptoms ED EXAM,LOWER BACK PAIN/INJURY - Physical Exam Exam: See Below Exam Limited By: No Limitations General Appearance: Alert, WD/WN, Mild Distress Head: Atraumatic, Normocephalic Neck: Normal Inspection, Supple, Non-Tender, Full Range of Motion Respiratory/Chest: No Respiratory Distress, Lungs Clear, Normal Breath Sounds Cardiovascular: Regular Rate, Rhythm, No Edema GI/Abdominal: Normal Bowel Sounds, Soft, Non-Tender Back Exam: Normal Inspection, Decreased Range of Motion (with flexion as it does cause some discomfort in the thoracic spine and the right hip/pelvis area posteriorly) Extremities: Normal Inspection, Normal Range of Motion, Non-Tender, No Pedal Edema, Normal Capillary Refill Neurological: Alert, Normal Mood/Affect, Oriented x 3 Skin Exam: Warm, Dry, Intact Course - Vital Signs Last Recorded V/S: Last Vital Signs Temp 97.5 F 03/23/19 16:42 Pulse 63 03/23/19 16:42 Resp 18 03/23/19 16:42 BP 133/62 03/23/19 16:42 Pulse Ox 98 03/23/19 16:42 - Orders/Labs/Meds Orders: Active Orders 24 hr Category Date Time Status Pelvis 1V or 2V [CR] Urgent Exams 03/23/19 16:46 Ordered Thoracic Spine 3V [CR] Stat Exams 03/23/19 16:46 Ordered - Re-Assessments/Exams Free Text/Narrative Re-Assessment/Exam: 03/23/19 17:21 In to discuss xray results as no fractures Departure - Departure Time of Disposition: 17:22 Disposition: Home, Self-Care 01 Condition: Good Clinical Impression: Thoracic spine pain Fall at home Qualifiers: Encounter type: initial encounter Qualified Code(s): W19.XXXA - Unspecified fall, initial encounter; Y92.009 - Unspecified place in unspecified non- institutional (private) residence as the place of occurrence of the external cause Superficial bruising of hip Qualifiers: Encounter type: initial encounter Laterality: right Qualified Code(s): S70.01XA - Contusion of right hip, initial encounter - Discharge Information *PRESCRIPTION DRUG MONITORING PROGRAM REVIEWED*: Not Applicable *COPY OF PRESCRIPTION DRUG MONITORING REPORT IN PATIENT HENRY: Not Applicable Instructions: Acute Back Pain, Adult Referrals: Palma Velazquez PA [Primary Care Provider] - Additional Instructions: tylenol or advil as needed for discomfort heating pad for comfort recheck if new concerns - Problem List & Annotations (1) Fall at home SNOMED Code(s): 25355777 Code(s): W19.XXXA - UNSPECIFIED FALL, INITIAL ENCOUNTER; Y92.009 - UNSP PLACE IN UNSP NON-INSTITUT (PRIVATE) RESIDENCE PLACE Status: Acute Priority: High Current Visit: Yes Qualifiers: Encounter type: initial encounter Qualified Code(s): W19.XXXA - Unspecified fall, initial encounter; Y92.009 - Unspecified place in unspecified non-institutional (private) residence as the place of occurrence of the external cause (2) Superficial bruising of hip SNOMED Code(s): 90338794 Code(s): S70.00XA - CONTUSION OF UNSPECIFIED HIP, INITIAL ENCOUNTER Status : Acute Priority: High Current Visit: Yes Qualifiers: Encounter type: initial encounter Laterality: right Qualified Code(s): S70.01XA - Contusion of right hip, initial encounter (3) Thoracic spine pain SNOMED Code(s): 646263375 Code(s): M54.6 - PAIN IN THORACIC SPINE Status: Acute Priority: High Current Visit: Yes - Problem List Review Problem List Initiated/Reviewed/Updated: Yes - My Orders Last 24 Hours: My Active Orders 03/23/19 16:46 Pelvis 1V or 2V [CR] Urgent Thoracic Spine 3V [CR] Stat - Assessment/Plan Last 24 Hours: My Active Orders 03/23/19 16:46 Pelvis 1V or 2V [CR] Urgent Thoracic Spine 3V [CR] Stat
== END 2019-03-23 17:35 | disposition home or self-care (01) ==
LOC: CC.ED 16:21
DX: S70.01XA Contusion of right hip, initial encounter (principal); M54.6 Pain in thoracic spine; I10 Essential (primary) hypertension; E11.9 Type 2 diabetes mellitus without complications; Z88.0 Allergy status to penicillin; Z79.82 Long term (current) use of aspirin; Z79.84 Long term (current) use of oral hypoglycemic drugs; Z79.899 Other long term (current) drug therapy; E78.00 Pure hypercholesterolemia, unspecified; W18.39XA Other fall on same level, initial encounter
CPT/HCPCS: 72072; 72170; 99283-25

== ENCOUNTER 2019-10-08 02:10 | Emergency (ER) | payer MEDICARE, BC ==
[2019-10-08] MEDS ORDERED: Codeine/Promethazine 10-6.25 MG/5 ML Syrup 5 ML UD Cup PO ONE (02:11)
[2019-10-08 02:34] VITALS: BP 131/64; PULSE 61
[2019-10-08] MEDS ORDERED: Albuterol/Ipratropium 3.0-0.5 MG/3 ML Neb Soln NEB ONE (02:57)
--- NOTE | 2019-10-08 03:03 | EDM.PDOC ---
ED HPI GENERAL MEDICAL PROBLEM - General Chief Complaint: Respiratory Problem Stated Complaint: cough, back pain Time Seen by Provider: 10/08/19 02:52 Source of Information: Reports: Patient History Limitations: Reports: No Limitations - History of Present Illness INITIAL COMMENTS - FREE TEXT/NARRATIVE: Patient to the emergency department complaining of cough congestion and fever off and on since Wednesday. The patient advises that he did see Sanam in the office on was given a shot without relief of symptoms. He does advise that he was diagnosed with sinusitis at that point. The patient denies any cardiac chest pain, he denies any ear, throat symptoms. He does have a runny congested nose he denies any unusual neck, back pain or stiffness he denies any myalgia he denies any shortness of breath, he denies any abdominal pain he denies any nausea, vomiting, diarrhea, denies any rash. Onset: Gradual Duration: Day(s): Location: Reports: Chest Quality: Reports: Ache Severity: Severe Improves with: Reports: None Worsens with: Reports: Movement (Coughing) Associated Symptoms: Reports: Cough, cough w sputum, Fever/Chills. Denies: Chest Pain, Nausea/Vomiting, Shortness of Breath, Syncope, Weakness Treatments KICK PRESS SETTER: Reports: Acetaminophen, Other (see below) Upper Back Pain Score (Numeric/FACES): 9 - Related Data Allergies Allergy/AdvReac Type Severity Reaction Status Date / Time Penicillins Allergy Swelling Verified 10/08/19 02:24 Home Meds: Home Meds Aspirin [Adult Low Dose Aspirin EC] 81 mg PO DAILY 07/20/13 [History] Lisinopril [Zestril] 2.5 mg PO DAILY 07/20/13 [History] allopurinoL [Zyloprim] 300 mg PO Q48H 07/20/13 [History] metFORMIN HCl [Metformin HCl] 500 mg PO BID 11/23/16 [History] Furosemide 20 mg PO DAILY 02/24/19 [History] Ubidecarenone [Co Q-10] 1 tab PO DAILY 02/24/19 [History] Rosuvastatin [Crestor] 10 mg PO DAILY 03/23/19 [History] Adalimumab [Humira Pen] 0.8 ml IM ASDIRECTED 10/08/19 [History] Meloxicam 15 mg PO DAILY 10/08/19 [History] Multivits,Th w-Fe,Other Min [Complete Multivitamin] 1 tab PO DAILY 10/08/19 [ History] cephALEXin [Keflex] 500 mg PO Q8H 10 Days #30 cap 10/08/19 [Rx] predniSONE [Prednisone] 50 mg PO DAILY 5 Days #5 tablet 10/08/19 [Rx] Past Medical History HEENT History: Reports: Impaired Vision Cardiovascular History: Reports: High Cholesterol, Hypertension Other Cardiovascular History: IRREGULAR HEART BEAT Respiratory History: Reports: Sleep Apnea Other Respiratory History: cpap Gastrointestinal History: Reports: Diverticulosis Other Gastrointestinal History: has been hospitalized d/t twisting of bowel Genitourinary History: Reports: Pyelonephritis Musculoskeletal History: Reports: Gout, Other (See Below) Other Musculoskeletal History: ANKYLOSING SPONDYLITIS Endocrine/Metabolic History: Reports: Diabetes, Type II Dermatologic History: Reports: Other (See Below) Other Dermatologic History: lumpectomy of left armpit area - Past Surgical History HEENT Surgical History: Reports: Cataract Surgery Cardiovascular Surgical History: Reports: None Respiratory Surgical History: Reports: None GI Surgical History: Reports: Colonoscopy, EGD Musculoskeletal Surgical History: Reports: Other (See Below) Social & Family History - Family History Family Medical History: Noncontributory - Tobacco Use Smoking Status *Q: Never Smoker Second Hand Smoke Exposure: No - Caffeine Use Caffeine Use: Reports: None - Recreational Drug Use Recreational Drug Use: No - Living Situation & Occupation Living situation: Reports: , with Spouse Occupation: Retired ED ROS GENERAL - Review of Systems Review Of Systems: See Below Constitutional: Reports: Fever, Chills HEENT: Reports: No Symptoms, Sinus Problem. Denies: Ear Pain, Throat Pain Respiratory: Reports: Wheezing, Cough, Sputum. Denies: Shortness of Breath Cardiovascular: Reports: No Symptoms. Denies: Chest Pain, Edema Endocrine: Reports: No Symptoms GI/Abdominal: Reports: No Symptoms. Denies: Abdominal Pain, Nausea, Vomiting Musculoskeletal: Reports: Other (Bilateral rib pain secondary to coughing). Denies: Neck Pain, Shoulder Pain, Back Pain Skin: Reports: No Symptoms. Denies: Bruising, Rash, Erythema Neurological: Reports: No Symptoms. Denies: Confusion, Dizziness, Headache Psychiatric: Reports: No Symptoms ED EXAM, GENERAL - Physical Exam Exam: See Below Exam Limited By: No Limitations General Appearance: Alert, WD/WN, No Apparent Distress Ears: Normal External Exam, Normal Canal, Hearing Grossly Normal, Normal TMs Ear Exam: Bilateral Ear: Auricle Normal, Canal Normal, TM normal Nose: Normal Inspection, Normal Mucosa Throat/Mouth: Normal Inspection, Normal Lips, Normal Oropharynx, Normal Voice, No Airway Compromise Head: Atraumatic, Normocephalic Neck: Normal Inspection, Supple, Non-Tender, Full Range of Motion Respiratory/Chest: No Respiratory Distress, Wheezing (Scattered expiratory wheezing). No: Lungs Clear, Chest Non-Tender (Bilateral rib tenderness with palpation) Cardiovascular: Normal Peripheral Pulses, Regular Rate, Rhythm, No Murmur Peripheral Pulses: 2+: Radial (L), Radial (R) GI/Abdominal: Soft, Non-Tender Back Exam: Normal Inspection, Full Range of Motion Extremities: Normal Inspection, Normal Range of Motion, Non-Tender, No Pedal Edema, Normal Capillary Refill Neurological: Alert, Oriented, Normal Cognition, Normal Gait, No Motor/Sensory Deficits Psychiatric: Normal Affect, Normal Mood Skin Exam: Warm, Dry, Intact, Normal Color Course - Vital Signs Text/Narrative:: The patient was evaluated in the emergency department, it appears that the patient has an exacerbation of COPD, the white blood cell count is normal however there are some bands. General chemistries, lactic acid is normal CRP is elevated at 4. Chest x-ray shows some COPD with no definite pneumonias. However the radiology reading is still pending. The patient will be given Rocephin 1 g IM as well as Decadron 10 mg IM. The patient will also be given promethazine with codeine cough syrup. The patient will be discharged home he will be given Keflex 500 mg 3 times a day for 10 days as well as he will be given prednisone 50 mg once a day for 5 days, additionally, the patient will be given Promethazine DM 1 to 2 teaspoons every 6 hours as needed for cough number 120 mL.. The patient will be advised to increase his fluids and advised to follow-up with Sanam this coming week. He is to return to the emergency department or clinic sooner if worsening problems. The patient was also advised to monitor his blood sugar as the steroids can elevate his blood sugar. The patient did advise that his blood sugars are normal and well controlled. Last Recorded V/S: Last Vital Signs Temp 36.4 C 10/08/19 02:33 Pulse 61 10/08/19 02:33 Resp 20 10/08/19 02:33 BP 131/64 10/08/19 02:33 Pulse Ox 97 10/08/19 02:33 - Orders/Labs/Meds Orders: Active Orders 24 hr Category Date Time Status RT Aerosol Therapy [RC] ASDIRECTED Care 10/08/19 02:58 Active CXR [Chest 2V] [CR] Stat Exams 10/08/19 02:57 Taken CULTURE BLOOD [BC] Stat Lab 10/08/19 03:05 Received CULTURE BLOOD [BC] Stat Lab 10/08/19 03:10 Received Blood Culture x2 Reflex Set [OM.PC] Stat Oth 10/08/19 02:56 Ordered Labs: Laboratory Tests 10/08/19 10/08/19 10/08/19 Range/Units 03:05 03:05 03:10 WBC 4.0 L (5.0-10.0) 10^3/uL RBC 5.43 (4.50-6.00) 10^6/uL Hgb 15.5 (14.0-18.0) g/dL Hct 48.1 (40.0-54.0) % MCV 88.6 (82.0-94.0) fL MCH 28.5 (27.0-32.0) pg MCHC 32.2 L (33.0-38.0) g/dL RDW Coeff of Twan 14.7 (11.0-15.0) % Plt Count 113 L (150-400) 10^3/uL Add Manual Diff Yes Neutrophils % (Manual) 51 (35-85) % Band Neutrophils % 13 H (0-5) % Lymphocytes % (Manual) 22 (21-55) % Monocytes % (Manual) 11 (2-12) % Eosinophils % (Manual) 2 (0-5) % Basophils % (Manual) 1 (0-3) % Sodium 139 (136-145) mEq/L Potassium 4.4 (3.5-5.0) mEq/L Chloride 102 (98-106) mEq/L Carbon Dioxide 28 (21-32) mmol/L BUN 25 H (7-18) mg/dL Creatinine 1.2 (0.7-1.3) mg/dL Est Cr Clr Drug Dosing 58.30 mL/min Estimated GFR (MDRD) 60 (>=60) mL/min Glucose 116 H (75-99) mg/dL Lactic Acid 1.3 (0.4-2.0) mmol/L Calcium 9.1 (8.4-10.1) mg/dL Total Bilirubin 0.4 (0.0-1.0) mg/dL AST 43 H (15-37) U/L ALT 46 (12-78) U/L Alkaline Phosphatase 40 L (46-116) U/L C-Reactive Protein 4.7 H (0.2-0.8) mg/dL Total Protein 7.3 (6.4-8.2) g/dL Albumin 3.7 (3.4-5.0) g/dL Urine Color (YELLOW) Urine Appearance (CLEAR) Urine pH (4.5-8.0) Ur Specific [place] (1.003-1.020) Urine Protein (NEGATIVE) mg/dL Urine Glucose (UA) (NEGATIVE) mg/dL Urine Ketones (NEGATIVE) mg/dL Urine Occult Blood (NEGATIVE) Urine Nitrite (NEGATIVE) Urine Bilirubin (NEGATIVE) Urine Urobilinogen (0.2-1.0) EU/dL Ur Leukocyte Esterase (NEGATIVE) 10/08/19 Range/Units 03:30 WBC (5.0-10.0) 10^3/uL RBC (4.50-6.00) 10^6/uL Hgb (14.0-18.0) g/dL Hct (40.0-54.0) % MCV (82.0-94.0) fL MCH (27.0-32.0) pg MCHC (33.0-38.0) g/dL RDW Coeff of Twan (11.0-15.0) % Plt Count (150-400) 10^3/uL Add Manual Diff Neutrophils % (Manual) (35-85) % Band Neutrophils % (0-5) % Lymphocytes % (Manual) (21-55) % Monocytes % (Manual) (2-12) % Eosinophils % (Manual) (0-5) % Basophils % (Manual) (0-3) % Sodium (136-145) mEq/L Potassium (3.5-5.0) mEq/L Chloride (98-106) mEq/L Carbon Dioxide (21-32) mmol/L BUN (7-18) mg/dL Creatinine (0.7-1.3) mg/dL Est Cr Clr Drug Dosing mL/min Estimated GFR (MDRD) (>=60) mL/min Glucose (75-99) mg/dL Lactic Acid (0.4-2.0) mmol/L Calcium (8.4-10.1) mg/dL Total Bilirubin (0.0-1.0) mg/dL AST (15-37) U/L ALT (12-78) U/L Alkaline Phosphatase (46-116) U/L C-Reactive Protein (0.2-0.8) mg/dL Total Protein (6.4-8.2) g/dL Albumin (3.4-5.0) g/dL Urine Color Yellow (YELLOW) Urine Appearance Clear (CLEAR) Urine pH 5.0 (4.5-8.0) Ur Specific [place] >= 1.030 H (1.003-1.020) Urine Protein Negative (NEGATIVE) mg/dL Urine Glucose (UA) Negative (NEGATIVE) mg/dL Urine Ketones Negative (NEGATIVE) mg/dL Urine Occult Blood Negative (NEGATIVE) Urine Nitrite Negative (NEGATIVE) Urine Bilirubin Negative (NEGATIVE) Urine Urobilinogen 0.2 (0.2-1.0) EU/dL Ur Leukocyte Esterase Negative (NEGATIVE) Meds: Medications Discontinued Medications Generic Name Dose Route Start Last Admin Trade Name Freq PRN Reason Stop Dose Admin Albuterol/Ipratropium 3 ml 10/08/19 02:57 10/08/19 03:00 Duoneb 3.0-0.5 Mg/3 Ml NEB 10/08/19 02:58 3 ml ONETIME ONE Administration Ceftriaxone Sodium 1 gm 10/08/19 03:37 Rocephin IM 10/08/19 03:38 ONETIME ONE Dexamethasone 10 mg 10/08/19 03:38 Dexamethasone IM 10/08/19 03:39 ONETIME ONE Promethazine HCl/Codeine 2 packet 10/08/19 03:39 Take Home: Codeine/Prometh 10-6.25 Mg, 2 Pack PO 10/08/19 03:40 ONETIME ONE Departure - Departure Time of Disposition: 03:42 Disposition: Home, Self-Care 01 Clinical Impression: COPD exacerbation - Discharge Information *PRESCRIPTION DRUG MONITORING PROGRAM REVIEWED*: Not Applicable *COPY OF PRESCRIPTION DRUG MONITORING REPORT IN PATIENT HENRY: Not Applicable Prescriptions: cephALEXin [Keflex] 500 mg PO Q8H 10 Days #30 cap predniSONE [Prednisone] 50 mg PO DAILY 5 Days #5 tablet Instructions: Chronic Obstructive Pulmonary Disease, [id number], Cough, Adult , [id number] Referrals: Diego Rhodes MD [Primary Care Provider] - Forms: ED Department Discharge Additional Instructions: Rest Increase fluids Keflex 500 mg 3 times a day for 10 days Prednisone 50 mg once a day for 5 days, monitor your blood sugar closely as this medication can increase your blood sugar Promethazine DM cough syrup take 1 to 2 teaspoons every 6 hours as needed for cough Follow-up with Sanam this coming week, Return to the emergency department sooner if worsening problems Sepsis Event Note - Evaluation Sepsis Screening Result: No Definite Risk - Focused Exam Vital Signs: Vital Signs Temp Pulse Resp BP Pulse Ox 10/08/19 02:33 36.4 C 61 20 131/64 97 Date Exam was Performed: 10/08/19 Time Exam was Performed: 03:49 - Problem List & Annotations (1) COPD exacerbation SNOMED Code(s): 932510072 Code(s): J44.1 - CHRONIC OBSTRUCTIVE PULMONARY DISEASE W (ACUTE) EXACERBATION Status: Acute Priority: High Current Visit: Yes - Problem List Review Problem List Initiated/Reviewed/Updated: Yes - My Orders Last 24 Hours: My Active Orders 10/08/19 02:56 Blood Culture x2 Reflex Set [OM.PC] Stat 10/08/19 02:57 CXR [Chest 2V] [CR] Stat 10/08/19 02:58 RT Aerosol Therapy [RC] ASDIRECTED 10/08/19 03:05 CULTURE BLOOD [BC] Stat 10/08/19 03:10 CULTURE BLOOD [BC] Stat - Assessment/Plan Last 24 Hours: My Active Orders 10/08/19 02:56 Blood Culture x2 Reflex Set [OM.PC] Stat 10/08/19 02:57 CXR [Chest 2V] [CR] Stat 10/08/19 02:58 RT Aerosol Therapy [RC] ASDIRECTED 10/08/19 03:05 CULTURE BLOOD [BC] Stat 10/08/19 03:10 CULTURE BLOOD [BC] Stat Plan: As above
[2019-10-08] MEDS ORDERED: Lidocaine 1% 20 ML MDV ONE (03:34)
[2019-10-08] MEDS ORDERED: cefTRIAXone 1 GM Vial IM ONE (03:37)
[2019-10-08] MEDS ORDERED: Dexamethasone 4 MG/ML SDV IM ONE (03:38)
[2019-10-08] MEDS ORDERED: Take Home: Codeine/Promethazine 10-6.25 MG/5 ML Syrup 5 ML, 2 Cup Pack PO ONE (03:39)
== END 2019-10-08 04:07 | disposition home or self-care (01) ==
LOC: CC.ED 02:10
DX: J44.1 Chronic obstructive pulmonary disease with (acute) exacerbation (principal); I10 Essential (primary) hypertension; E11.9 Type 2 diabetes mellitus without complications; E78.00 Pure hypercholesterolemia, unspecified; M10.9 Gout, unspecified; Z88.0 Allergy status to penicillin; Z79.82 Long term (current) use of aspirin; Z79.84 Long term (current) use of oral hypoglycemic drugs; Z79.899 Other long term (current) drug therapy
CPT/HCPCS: 36415; 71046; 80053; 81003; 83605; 85025; 86140; 87040; 94640; 96372; 99284; A9270; J0696; J1100; J2001; J7620-GY

== ENCOUNTER 2019-12-09 18:50 | Observation (INO) | payer MEDICARE, BC ==
[2019-12-09] MEDS ORDERED: Acetaminophen 325 MG Tab PO ONE (19:23)
--- NOTE | 2019-12-09 19:26 | EDM.PDOC ---
ED HPI GENERAL MEDICAL PROBLEM - General Chief Complaint: Genitourinary Problem Stated Complaint: painful urination Time Seen by Provider: 12/09/19 19:15 Source of Information: Reports: Patient History Limitations: Reports: No Limitations - History of Present Illness INITIAL COMMENTS - FREE TEXT/NARRATIVE: Patient to the emergency department where he advises that today he started having severe burning with urination and has developed a fever. The patient denies any ear, nose, throat symptoms he denies any unusual neck, back pain or stiffness he denies any flank pain he denies any lower back pain he denies any abdominal pain he denies any nausea, vomiting, diarrhea he has no cough. The patient has not been around any ill persons and has not had any recent travel. The patient denies any other symptoms Onset: Today Duration: Other (Symptoms since this morning) Location: Reports: Other (Burning with urination) Quality: Reports: Burning Severity: Moderate Improves with: Reports: None Worsens with: Reports: Other (With urination) Associated Symptoms: Reports: Fever/Chills. 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) - Related Data Allergies Allergy/AdvReac Type Severity Reaction Status Date / Time Penicillins Allergy Swelling Verified 12/09/19 19:18 Home Meds: Home Meds Aspirin [Adult Low Dose Aspirin EC] 81 mg PO DAILY 07/20/13 [History] Lisinopril [Zestril] 2.5 mg PO DAILY 07/20/13 [History] allopurinoL [Zyloprim] 300 mg PO Q48H 07/20/13 [History] metFORMIN HCl [Metformin HCl] 500 mg PO BID 11/23/16 [History] Furosemide 20 mg PO DAILY 02/24/19 [History] Ubidecarenone [Co Q-10] 1 tab PO DAILY 02/24/19 [History] Rosuvastatin [Crestor] 10 mg PO DAILY 03/23/19 [History] Adalimumab [Humira Pen] 0.8 ml IM ASDIRECTED 10/08/19 [History] Meloxicam 15 mg PO DAILY 10/08/19 [History] Multivits,Th w-Fe,Other Min [Complete Multivitamin] 1 tab PO DAILY 10/08/19 [ History] Aspirin [[place] Aspirin] 81 mg PO DAILY 12/09/19 [History] Past Medical History HEENT History: Reports: Impaired Vision Cardiovascular History: Reports: High Cholesterol, Hypertension Other Cardiovascular History: IRREGULAR HEART BEAT Respiratory History: Reports: Sleep Apnea Other Respiratory History: cpap Gastrointestinal History: Reports: Diverticulosis Other Gastrointestinal History: has been hospitalized d/t twisting of bowel Genitourinary History: Reports: Pyelonephritis Musculoskeletal History: Reports: Gout, Other (See Below) Other Musculoskeletal History: ANKYLOSING SPONDYLITIS Endocrine/Metabolic History: Reports: Diabetes, Type II Dermatologic History: Reports: Other (See Below) Other Dermatologic History: lumpectomy of left armpit area - Past Surgical History HEENT Surgical History: Reports: Cataract Surgery Cardiovascular Surgical History: Reports: None Respiratory Surgical History: Reports: None GI Surgical History: Reports: Colonoscopy, EGD Musculoskeletal Surgical History: Reports: Other (See Below) Social & Family History - Family History Family Medical History: Noncontributory - Caffeine Use Caffeine Use: Reports: None - Living Situation & Occupation Living situation: Reports: , with Spouse Occupation: Retired ED ROS GENERAL - Review of Systems Review Of Systems: See Below Constitutional: Reports: Fever, Chills. Denies: Weakness HEENT: Reports: No Symptoms Respiratory: Reports: No Symptoms. Denies: Shortness of Breath, Cough Cardiovascular: Reports: No Symptoms. Denies: Chest Pain Endocrine: Reports: No Symptoms GI/Abdominal: Denies: Abdominal Pain, Diarrhea, Nausea, Vomiting : Reports: Frequency, Pain, Urgency. Denies: Discharge, Dysuria, Flank Pain, Hematuria, Urinary Retention Musculoskeletal: Reports: No Symptoms. Denies: Neck Pain, Back Pain Skin: Reports: No Symptoms. Denies: Bruising, Rash, Erythema Neurological: Reports: No Symptoms. Denies: Confusion Psychiatric: Reports: No Symptoms ED EXAM, RENAL/ - Physical Exam Exam: See Below Exam Limited By: No Limitations General Appearance: Alert, WD/WN, No Apparent Distress Ears: Normal External Exam Nose: Normal Inspection Throat/Mouth: Normal Inspection, Normal Voice, No Airway Compromise Head: Atraumatic, Normocephalic Neck: Normal Inspection, Supple, Non-Tender, Full Range of Motion Respiratory/Chest: No Respiratory Distress, Lungs Clear, Normal Breath Sounds, Chest Non-Tender Cardiovascular: Normal Peripheral Pulses, Regular Rate, Rhythm, No Murmur GI/Abdominal: Soft, Non-Tender, No Distention Back Exam: Normal Inspection, Full Range of Motion. No: CVA Tenderness (L), CVA Tenderness (R) Extremities: Normal Inspection, Normal Range of Motion, Non-Tender, Normal Capillary Refill Neurological: Alert, Oriented, Normal Cognition, Normal Gait, No Motor/Sensory Deficits Psychiatric: Normal Affect, Normal Mood Skin Exam: Warm, Dry, Intact, Normal Color, No Rash Course - Vital Signs Text/Narrative:: 2034 the patient was evaluated in the emergency department the white count is 14 ,000 with a left shift, CRP is greater than 11, urine does show a urinary tract infection. Chest x-ray is negative for any pneumonia. General chemistries other than his blood sugar being elevated are essentially negative. The patient will be admitted for IV fluids and IV antibiotics and observation. Patient's blood work will be peaked in the morning and as long as there is improvement he will probably go home tomorrow. I discussed all this with the patient he agrees. Last Recorded V/S: Last Vital Signs Temp 38.0 C 12/09/19 19:00 Pulse 107 H 12/09/19 19:00 Resp 18 12/09/19 19:00 BP 130/75 12/09/19 19:00 Pulse Ox 95 12/09/19 19:00 - Orders/Labs/Meds Orders: Active Orders 24 hr Category Date Time Status Patient Status Manage Transfer [TRANSFER] Routine ADT 12/09/19 20:44 Active Patient Status [ADT] Routine ADT 12/09/19 20:49 Active Blood Glucose Check, Bedside [RC] QIDACANDBED Care 12/09/19 20:49 Active Diabetes Education [RC] Click to Edit Care 12/09/19 20:50 Active Height and Weight [RC] UPON Care 12/09/19 20:49 Active Intake and Output [RC] QSHIFT Care 12/09/19 20:50 Active Oxygen Therapy [RC] PRN Care 12/09/19 20:49 Active Up ad Mague [RC] ASDIRECTED Care 12/09/19 20:49 Active VTE/DVT Education [RC] PER UNIT ROUTINE Care 12/09/19 20:49 Active Vital Signs [RC] Q4H Care 12/09/19 20:49 Active Consistent Carbohydrate Diet [DIET] Diet 12/10/19 Breakfast Active CXR [Chest 2V] [CR] Stat Exams 12/09/19 20:13 Taken BASIC METABOLIC PANEL,BMP [CHEM] AM Lab 12/10/19 05:11 Ordered C-REACTIVE PROTEIN [CHEM] AM Lab 12/10/19 05:11 Ordered CBC WITH AUTO DIFF [HEME] AM Lab 12/10/19 05:11 Ordered CULTURE BLOOD [BC] Stat Lab 12/09/19 19:40 Received CULTURE BLOOD [BC] Stat Lab 12/09/19 19:45 Received CULTURE URINE [RM] Stat Lab 12/09/19 19:25 Received Acetaminophen [Tylenol] Med 12/09/19 20:49 Active 650 mg PO Q4H PRN Adalimumab [Humira Pen] Med 12/09/19 21:00 Active 0.8 ml IM ASDIRECTED Aspirin Med 12/10/19 08:00 Active 81 mg PO DAILY Aspirin [Halfprin] Med 12/10/19 08:00 Active 81 mg PO DAILY Enoxaparin [Lovenox] Med 12/09/19 21:00 Active 40 mg SUBCUT Q24H Furosemide [Lasix] Med 12/10/19 08:00 Active 20 mg PO DAILY Meloxicam [Meloxicam] Med 12/10/19 08:00 Active 15 mg PO DAILY Multivits,Th w-Fe,Other Min [Complete Multivitamin] Med 12/10/19 08:00 Active 1 tab PO DAILY Rosuvastatin [Crestor] Med 12/10/19 08:00 Active 10 mg PO DAILY Sodium Chloride 0.9% [Normal Saline] 1,000 ml Med 12/09/19 19:30 Active IV ASDIRECTED Sodium Chloride 0.9% [Normal Saline] 1,000 ml Med 12/09/19 21:00 Active IV ASDIRECTED Ubidecarenone [Co Q-10] Med 12/10/19 08:00 Active 1 tab PO DAILY allopurinoL [Zyloprim] Med 12/09/19 21:00 Active 300 mg PO Q48H cefTRIAXone [Rocephin] Med 12/10/19 21:00 Active 1 gm IVPUSH Q24H lisinopriL [Prinivil] Med 12/10/19 08:00 Active 2.5 mg PO DAILY metFORMIN [Glucophage] Med 12/10/19 08:00 Active 500 mg PO BID Blood Culture x2 Reflex Set [OM.PC] Stat Oth 12/09/19 19:22 Ordered Glucose Management Sub Q Reflex [OM.PC] Click To Edit Oth 12/09/19 20:49 Ordered Resuscitation Status Routine Resus Stat 12/09/19 20:49 Ordered Medication Orders Acetaminophen (Tylenol) 650 mg PO Q4H PRN PRN Reason: Pain (Mild 1-3)/fever Allopurinol (Zyloprim) 300 mg PO Q48H [facility] Aspirin (Halfprin) 81 mg PO DAILY [facility] Aspirin (Aspirin) 81 mg PO DAILY [facility] Ceftriaxone Sodium (Rocephin) 1 gm IVPUSH Q24H [facility] Enoxaparin Sodium (Lovenox) 40 mg SUBCUT Q24H [facility] Furosemide (Lasix) 20 mg PO DAILY [facility] Sodium Chloride (Normal Saline) 1,000 mls @ 100 mls/hr IV ASDIRECTED [facility] Last Admin: 12/09/19 20:46 Dose: 100 mls/hr Sodium Chloride (Normal Saline) 1,000 mls @ 100 mls/hr IV ASDIRECTED [facility] Lisinopril (Prinivil) 2.5 mg PO DAILY [facility] Metformin HCl (Glucophage) 500 mg PO BID [facility] Non-Formulary Medication (Adalimumab [Humira Pen]) 0.8 ml IM ASDIRECTED [facility] Non-Formulary Medication (Meloxicam [Meloxicam]) 15 mg PO DAILY [facility] Non-Formulary Medication (Multivits,Th W-Fe,Other Min [Complete Multivitamin]) 1 tab PO DAILY [facility] Non-Formulary Medication (Rosuvastatin [Crestor]) 10 mg PO DAILY [facility] Non-Formulary Medication (Ubidecarenone [Co Q-10]) 1 tab PO DAILY [facility] Labs: Laboratory Tests 12/09/19 12/09/19 12/09/19 Range/Units 19:25 19:40 19:40 WBC 14.3 H (5.0-10.0) 10^3/uL RBC 5.22 (4.50-6.00) 10^6/uL Hgb 15.6 (14.0-18.0) g/dL Hct 46.4 (40.0-54.0) % MCV 88.9 (82.0-94.0) fL MCH 29.9 (27.0-32.0) pg MCHC 33.6 (33.0-38.0) g/dL RDW Coeff of Twan 15.1 H (11.0-15.0) % Plt Count 145 L (150-400) 10^3/uL Neut % (Auto) 84.4 (35-85) % Lymph % (Auto) 5.5 L (10-55) % Carroll % (Auto) 9.3 (0-16) % Eos % (Auto) 0.6 (0-5) % Baso % (Auto) 0.2 (0-3) % Neut # (Auto) 12.05 H (1.80-7.00) 10^3/uL Lymph # (Auto) 0.78 L (1.00-4.80) 10^3/uL Carroll # (Auto) 1.32 H (0.00-0.80) 10^3/uL Eos # (Auto) 0.09 (0.00-0.45) 10^3/uL Baso # (Auto) 0.03 10^3/uL Sodium 141 (136-145) mEq/L Potassium 4.2 (3.5-5.0) mEq/L Chloride 102 (98-106) mEq/L Carbon Dioxide 28 (21-32) mmol/L BUN 24 H (7-18) mg/dL Creatinine 1.1 (0.7-1.3) mg/dL Est Cr Clr Drug Dosing 64.60 mL/min Estimated GFR (MDRD) > 60 (>=60) mL/min Glucose 195 H D (75-99) mg/dL Lactic Acid (0.4-2.0) mmol/L Calcium 8.8 (8.4-10.1) mg/dL Total Bilirubin 0.7 (0.0-1.0) mg/dL AST 11 L (15-37) U/L ALT 20 (12-78) U/L Alkaline Phosphatase 53 (46-116) U/L C-Reactive Protein 11.6 H (0.2-0.8) mg/dL Total Protein 7.3 (6.4-8.2) g/dL Albumin 3.7 (3.4-5.0) g/dL Urine Color Dark yellow (YELLOW) Urine Appearance Slightly cloudy (CLEAR) Urine pH 7.0 (4.5-8.0) Ur Specific [place] 1.020 (1.003-1.020) Urine Protein 30 H (NEGATIVE) mg/dL Urine Glucose (UA) Negative (NEGATIVE) mg/dL Urine Ketones Trace H (NEGATIVE) mg/dL Urine Occult Blood Negative (NEGATIVE) Urine Nitrite Negative (NEGATIVE) Urine Bilirubin Negative (NEGATIVE) Urine Urobilinogen 1.0 (0.2-1.0) EU/dL Ur Leukocyte Esterase Trace H (NEGATIVE) Urine RBC 0-5 (0-5) /HPF Urine WBC 20-30 H (0-5) /HPF Ur Epithelial Cells Occasional H (NOT SEEN) /HPF Urine Bacteria Occasional H (NOT SEEN) /HPF Urine Mucus Few H (NOT SEEN) /HPF 12/09/19 Range/Units 19:45 WBC (5.0-10.0) 10^3/uL RBC (4.50-6.00) 10^6/uL Hgb (14.0-18.0) g/dL Hct (40.0-54.0) % MCV (82.0-94.0) fL MCH (27.0-32.0) pg MCHC (33.0-38.0) g/dL RDW Coeff of Twan (11.0-15.0) % Plt Count (150-400) 10^3/uL Neut % (Auto) (35-85) % Lymph % (Auto) (10-55) % Carroll % (Auto) (0-16) % Eos % (Auto) (0-5) % Baso % (Auto) (0-3) % Neut # (Auto) (1.80-7.00) 10^3/uL Lymph # (Auto) (1.00-4.80) 10^3/uL Carroll # (Auto) (0.00-0.80) 10^3/uL Eos # (Auto) (0.00-0.45) 10^3/uL Baso # (Auto) 10^3/uL Sodium (136-145) mEq/L Potassium (3.5-5.0) mEq/L Chloride (98-106) mEq/L Carbon Dioxide (21-32) mmol/L BUN (7-18) mg/dL Creatinine (0.7-1.3) mg/dL Est Cr Clr Drug Dosing mL/min Estimated GFR (MDRD) (>=60) mL/min Glucose (75-99) mg/dL Lactic Acid 1.2 (0.4-2.0) mmol/L Calcium (8.4-10.1) mg/dL Total Bilirubin (0.0-1.0) mg/dL AST (15-37) U/L ALT (12-78) U/L Alkaline Phosphatase (46-116) U/L C-Reactive Protein (0.2-0.8) mg/dL Total Protein (6.4-8.2) g/dL Albumin (3.4-5.0) g/dL Urine Color (YELLOW) Urine Appearance (CLEAR) Urine pH (4.5-8.0) Ur Specific [place] (1.003-1.020) Urine Protein (NEGATIVE) mg/dL Urine Glucose (UA) (NEGATIVE) mg/dL Urine Ketones (NEGATIVE) mg/dL Urine Occult Blood (NEGATIVE) Urine Nitrite (NEGATIVE) Urine Bilirubin (NEGATIVE) Urine Urobilinogen (0.2-1.0) EU/dL Ur Leukocyte Esterase (NEGATIVE) Urine RBC (0-5) /HPF Urine WBC (0-5) /HPF Ur Epithelial Cells (NOT SEEN) /HPF Urine Bacteria (NOT SEEN) /HPF Urine Mucus (NOT SEEN) /HPF Meds: Medications Generic Name Dose Route Start Last Admin Trade Name Freq PRN Reason Stop Dose Admin Acetaminophen 650 mg 12/09/19 20:49 Tylenol PO Q4H PRN Pain (Mild 1-3)/fever Allopurinol 300 mg 12/09/19 21:00 Zyloprim PO Q48H [facility] Aspirin 81 mg 12/10/19 08:00 Halfprin PO DAILY [facility] Aspirin 81 mg 12/10/19 08:00 Aspirin PO DAILY [facility] Ceftriaxone Sodium 1 gm 12/10/19 21:00 Rocephin IVPUSH Q24H [facility] Enoxaparin Sodium 40 mg 12/09/19 21:00 Lovenox SUBCUT Q24H [facility] Furosemide 20 mg 12/10/19 08:00 Lasix PO DAILY [facility] Sodium Chloride 1,000 mls @ 100 mls/hr 12/09/19 19:30 12/09/19 20:46 Normal Saline IV 100 mls/hr ASDIRECTED [facility] Administration Sodium Chloride 1,000 mls @ 100 mls/hr 12/09/19 21:00 Normal Saline IV ASDIRECTED [facility] Lisinopril 2.5 mg 12/10/19 08:00 Prinivil PO DAILY [facility] Metformin HCl 500 mg 12/10/19 08:00 Glucophage PO BID [facility] Non-Formulary Medication 0.8 ml 12/09/19 21:00 Adalimumab [Humira Pen] IM ASDIRECTED [facility] Non-Formulary Medication 15 mg 12/10/19 08:00 Meloxicam [Meloxicam] PO DAILY [facility] Non-Formulary Medication 1 tab 12/10/19 08:00 Multivits,Th W-Fe,Other Min [Complete Multivitamin] PO DAILY [facility] Non-Formulary Medication 10 mg 12/10/19 08:00 Rosuvastatin [Crestor] PO DAILY [facility] Non-Formulary Medication 1 tab 12/10/19 08:00 Ubidecarenone [Co Q-10] PO DAILY [facility] Discontinued Medications Generic Name Dose Route Start Last Admin Trade Name Freq PRN Reason Stop Dose Admin Acetaminophen 650 mg 12/09/19 19:23 12/09/19 20:46 Tylenol PO 12/09/19 19:24 650 mg NOW ONE Administration Ceftriaxone Sodium 2 gm 12/09/19 20:15 12/09/19 20:46 Rocephin IVPUSH 12/09/19 20:16 2 gm ONETIME ONE Administration Departure - Departure Time of Disposition: 20:54 Disposition: Refer to Observation Condition: Good Clinical Impression: UTI, Urinary tract infectious disease, Leukocytosis, Fever - Discharge Information *PRESCRIPTION DRUG MONITORING PROGRAM REVIEWED*: Not Applicable *COPY OF PRESCRIPTION DRUG MONITORING REPORT IN PATIENT HENRY: Not Applicable Referrals: Palma Velazquez, [place] [Primary Care Provider] - Forms: ED Department Discharge Sepsis Event Note - Evaluation Sepsis Screening Result: Possible Sepsis Risk - Focused Exam Vital Signs: Vital Signs Temp Pulse Resp BP Pulse Ox 12/09/19 19:00 38.0 C 107 H 18 130/75 95 Date Exam was Performed: 12/09/19 Time Exam was Performed: 20:54 - Problem List & Annotations (1) Fever SNOMED Code(s): 160587273 Code(s): R50.9 - FEVER, UNSPECIFIED Status: Acute Priority: Medium Current Visit: Yes Qualifiers: Fever type: unspecified Qualified Code(s): R50.9 - Fever, unspecified (2) Leukocytosis SNOMED Code(s): 173306336, 173756200 Code(s): D72.829 - ELEVATED WHITE BLOOD CELL COUNT, UNSPECIFIED Status: Acute Priority: Medium Current Visit: Yes Qualifiers: Leukocytosis type: unspecified Qualified Code(s): D72.829 - Elevated white blood cell count, unspecified (3) UTI, Urinary tract infectious disease SNOMED Code(s): 01882529 Code(s): N39.0 - URINARY TRACT INFECTION, SITE NOT SPECIFIED Status: Acute Priority: High Current Visit: Yes - Problem List Review Problem List Initiated/Reviewed/Updated: Yes - My Orders Last 24 Hours: My Active Orders 12/09/19 19:22 Blood Culture x2 Reflex Set [OM.PC] Stat 12/09/19 19:25 CULTURE URINE [RM] Stat 12/09/19 19:30 Sodium Chloride 0.9% [Normal Saline] 1,000 ml IV ASDIRECTED 12/09/19 19:40 CULTURE BLOOD [BC] Stat 12/09/19 19:45 CULTURE BLOOD [BC] Stat 12/09/19 20:13 CXR [Chest 2V] [CR] Stat 12/09/19 20:44 Patient Status Manage Transfer [TRANSFER] Routine 12/09/19 20:49 Patient Status [ADT] Routine Blood Glucose Check, Bedside [RC] QIDACANDBED Height and Weight [RC] UPON Oxygen Therapy [RC] PRN Up ad Mague [RC] ASDIRECTED VTE/DVT Education [RC] PER UNIT ROUTINE Vital Signs [RC] Q4H Acetaminophen [Tylenol] 650 mg PO Q4H PRN Glucose Management Sub Q Reflex [OM.PC] Click To Edit Resuscitation Status Routine 12/09/19 20:50 Diabetes Education [RC] Click to Edit Intake and Output [RC] QSHIFT 12/09/19 21:00 Adalimumab [Humira Pen] 0.8 ml IM ASDIRECTED Enoxaparin [Lovenox] 40 mg SUBCUT Q24H Sodium Chloride 0.9% [Normal Saline] 1,000 ml IV ASDIRECTED allopurinoL [Zyloprim] 300 mg PO Q48H 12/10/19 05:11 BASIC METABOLIC PANEL,BMP [CHEM] AM C-REACTIVE PROTEIN [CHEM] AM CBC WITH AUTO DIFF [HEME] AM 12/10/19 08:00 Aspirin 81 mg PO DAILY Aspirin [Halfprin] 81 mg PO DAILY Furosemide [Lasix] 20 mg PO DAILY Meloxicam [Meloxicam] 15 mg PO DAILY Multivits,Th w-Fe,Other Min [Complete Multivitamin] 1 tab PO DAILY Rosuvastatin [Crestor] 10 mg PO DAILY Ubidecarenone [Co Q-10] 1 tab PO DAILY lisinopriL [Prinivil] 2.5 mg PO DAILY metFORMIN [Glucophage] 500 mg PO BID 12/10/19 21:00 cefTRIAXone [Rocephin] 1 gm IVPUSH Q24H 12/10/19 Breakfast Consistent Carbohydrate Diet [DIET] - Assessment/Plan Admission H&P: Please use this note as an admission H&P Last 24 Hours: My Active Orders 12/09/19 19:22 Blood Culture x2 Reflex Set [OM.PC] Stat 12/09/19 19:25 CULTURE URINE [RM] Stat 12/09/19 19:30 Sodium Chloride 0.9% [Normal Saline] 1,000 ml IV ASDIRECTED 12/09/19 19:40 CULTURE BLOOD [BC] Stat 12/09/19 19:45 CULTURE BLOOD [BC] Stat 12/09/19 20:13 CXR [Chest 2V] [CR] Stat 12/09/19 20:44 Patient Status Manage Transfer [TRANSFER] Routine 12/09/19 20:49 Patient Status [ADT] Routine Blood Glucose Check, Bedside [RC] QIDACANDBED Height and Weight [RC] UPON Oxygen Therapy [RC] PRN Up ad Mague [RC] ASDIRECTED VTE/DVT Education [RC] PER UNIT ROUTINE Vital Signs [RC] Q4H Acetaminophen [Tylenol] 650 mg PO Q4H PRN Glucose Management Sub Q Reflex [OM.PC] Click To Edit Resuscitation Status Routine 12/09/19 20:50 Diabetes Education [RC] Click to Edit Intake and Output [RC] QSHIFT 12/09/19 21:00 Adalimumab [Humira Pen] 0.8 ml IM ASDIRECTED Enoxaparin [Lovenox] 40 mg SUBCUT Q24H Sodium Chloride 0.9% [Normal Saline] 1,000 ml IV ASDIRECTED allopurinoL [Zyloprim] 300 mg PO Q48H 12/10/19 05:11 BASIC METABOLIC PANEL,BMP [CHEM] AM C-REACTIVE PROTEIN [CHEM] AM CBC WITH AUTO DIFF [HEME] AM 05/03/20 08:00 Aspirin 81 mg PO DAILY Aspirin [Halfprin] 81 mg PO DAILY Furosemide [Lasix] 20 mg PO DAILY Meloxicam [Meloxicam] 15 mg PO DAILY Multivits,Th w-Fe,Other Min [Complete Multivitamin] 1 tab PO DAILY Rosuvastatin [Crestor] 10 mg PO DAILY Ubidecarenone [Co Q-10] 1 tab PO DAILY lisinopriL [Prinivil] 2.5 mg PO DAILY metFORMIN [Glucophage] 500 mg PO BID 12/10/19 21:00 cefTRIAXone [Rocephin] 1 gm IVPUSH Q24H 12/10/19 Breakfast Consistent Carbohydrate Diet [DIET] Plan: The patient's past medical history, past surgical history, past family medical history and social history was reviewed see nursing notes for details The patient will be admitted to observation, see above for complete details
[2019-12-09] MEDS ORDERED: Sodium Chloride 0.9% 1,000 ML IV SCH (19:30)
[2019-12-09 20:04] LABS: CHLORIDE,CL 102 mEq/L (98-106); SODIUM,NA 141 mEq/L (136-145)
[2019-12-09] MEDS ORDERED: cefTRIAXone 2 GM Vial IVPUSH ONE (20:15)
[2019-12-09] MEDS ORDERED: ADALIMUMAB IM SCH (21:00)
[2019-12-09] MEDS ORDERED: Allopurinol 300 MG Tab PO SCH (21:00)
[2019-12-09] MEDS: Enoxaparin 40 MG/0.4 ML Syringe SUBCUT SCH (22:12)
[2019-12-09] MEDS: Phenazopyridine 95 MG Tab PO SCH (23:53)
[2019-12-10] MEDS: Acetaminophen 325 MG Tab PO PRN ×2 (06:05→16:02)
[2019-12-10] MEDS: Sodium Chloride 0.9% 1,000 ML IV SCH ×2 (07:20→17:39)
[2019-12-10 07:29] LABS: CHLORIDE,CL 104 mEq/L (98-106); SODIUM,NA 141 mEq/L (136-145)
[2019-12-10] MEDS: Furosemide 20 MG Tab **OWN MED PO SCH (07:36)
[2019-12-10] MEDS: metFORMIN 500 MG Tab**OWN MED PO SCH ×2 (07:36→17:28)
[2019-12-10] MEDS: MELOXICAM 15 MG PO SCH (07:37)
[2019-12-10] MEDS: Lisinopril 5 MG Tab**OWN MED PO SCH (07:38)
[2019-12-10] MEDS: Aspirin 81 MG Tab.EC PO SCH (07:40)
[2019-12-10] MEDS: MULTIVITS TH W FE OTHER MIN PO SCH (07:41)
[2019-12-10] MEDS: [UNRECOGNIZED DRUG - OTHER] PO SCH (07:41)
[2019-12-10] MEDS: Non-Formulary Medication 1 Each (Ubidecarenone [Co Q-10] 1 TAB) PO SCH (07:42)
[2019-12-10] MEDS ORDERED: Non-Formulary Medication 1 Each (Meloxicam [Meloxicam] 15 MG) PO SCH (08:00)
[2019-12-10] MEDS ORDERED: Non-Formulary Medication 1 Each (Rosuvastatin [Crestor] 10 MG) PO SCH (08:00)
[2019-12-10] MEDS ORDERED: Furosemide 20 MG Tab PO SCH (08:00)
[2019-12-10] MEDS ORDERED: Lisinopril 5 MG Tab PO SCH (08:00)
[2019-12-10] MEDS ORDERED: Aspirin 81 MG Tab.Chew PO SCH (08:00)
[2019-12-10] MEDS ORDERED: metFORMIN 500 MG Tab PO SCH (08:00)
[2019-12-10] MEDS: Phenazopyridine 95 MG Tab PO SCH ×3 (08:27→17:28)
[2019-12-10] MEDS ORDERED: Phenazopyridine 95 MG Tab PO SCH (08:30)
--- NOTE | 2019-12-10 09:48 | PCM.PN ---
- General Info Date of Service: 12/10/19 Admission Dx/Problem (Free Text): UTI, fever, leukocytosis Functional Status: Reports: Tolerating Diet, Ambulating, Urinating - Review of Systems General: Reports: Fever, Chills HEENT: Reports: No Symptoms Pulmonary: Reports: No Symptoms. Denies: Cough Cardiovascular: Reports: No Symptoms Gastrointestinal: Denies: Abdominal Pain, Nausea, Vomiting Genitourinary: Reports: Frequency, Pain, Urgency. Denies: Dysuria, Flank Pain Musculoskeletal: Reports: No Symptoms Skin: Reports: No Symptoms Neurological: Reports: No Symptoms Psychiatric: Reports: No Symptoms - Patient Data Vitals - Most Recent: Last Vital Signs Temp 37.2 C 12/10/19 07:30 Pulse 67 12/10/19 07:30 Resp 16 12/10/19 07:30 BP 118/51 L 12/10/19 07:38 Pulse Ox 97 12/10/19 07:30 Weight - Most Recent: 119.839 kg I&O - Last 24 Hours: Intake & Output 12/09/19 12/10/19 12/10/19 22:59 06:59 14:59 Intake Total 100 400 Output Total 300 Balance -200 400 Lab Results Last 24 Hours: Laboratory Results - last 24 hr 12/09/19 12/09/19 12/09/19 Range/Units 19:25 19:40 19:40 WBC 14.3 H (5.0-10.0) 10^3/uL RBC 5.22 (4.50-6.00) 10^6/uL Hgb 15.6 (14.0-18.0) g/dL Hct 46.4 (40.0-54.0) % MCV 88.9 (82.0-94.0) fL MCH 29.9 (27.0-32.0) pg MCHC 33.6 (33.0-38.0) g/dL RDW Coeff of Twan 15.1 H (11.0-15.0) % Plt Count 145 L (150-400) 10^3/uL Neut % (Auto) 84.4 (35-85) % Lymph % (Auto) 5.5 L (10-55) % [place] % (Auto) 9.3 (0-16) % Eos % (Auto) 0.6 (0-5) % Baso % (Auto) 0.2 (0-3) % Neut # (Auto) 12.05 H (1.80-7.00) 10^3/uL Lymph # (Auto) 0.78 L (1.00-4.80) 10^3/uL [place] # (Auto) 1.32 H (0.00-0.80) 10^3/uL Eos # (Auto) 0.09 (0.00-0.45) 10^3/uL Baso # (Auto) 0.03 10^3/uL Sodium 141 (136-145) mEq/L Potassium 4.2 (3.5-5.0) mEq/L Chloride 102 (98-106) mEq/L Carbon Dioxide 28 (21-32) mmol/L BUN 24 H (7-18) mg/dL Creatinine 1.1 (0.7-1.3) mg/dL Est Cr Clr Drug Dosing 64.60 mL/min Estimated GFR (MDRD) > 60 (>=60) mL/min Glucose 195 H D (75-99) mg/dL POC Glucose (75-105) mg/dl Lactic Acid (0.4-2.0) mmol/L Calcium 8.8 (8.4-10.1) mg/dL Total Bilirubin 0.7 (0.0-1.0) mg/dL AST 11 L (15-37) U/L ALT 20 (12-78) U/L Alkaline Phosphatase 53 (46-116) U/L C-Reactive Protein 11.6 H (0.2-0.8) mg/dL Total Protein 7.3 (6.4-8.2) g/dL Albumin 3.7 (3.4-5.0) g/dL Urine Color Dark yellow (YELLOW) Urine Appearance Slightly cloudy (CLEAR) Urine pH 7.0 (4.5-8.0) Ur Specific [place] 1.020 (1.003-1.020) Urine Protein 30 H (NEGATIVE) mg/dL Urine Glucose (UA) Negative (NEGATIVE) mg/dL Urine Ketones Trace H (NEGATIVE) mg/dL Urine Occult Blood Negative (NEGATIVE) Urine Nitrite Negative (NEGATIVE) Urine Bilirubin Negative (NEGATIVE) Urine Urobilinogen 1.0 (0.2-1.0) EU/dL Ur Leukocyte Esterase Trace H (NEGATIVE) Urine RBC 0-5 (0-5) /HPF Urine WBC 20-30 H (0-5) /HPF Ur Epithelial Cells Occasional H (NOT SEEN) /HPF Urine Bacteria Occasional H (NOT SEEN) /HPF Urine Mucus Few H (NOT SEEN) /HPF 12/09/19 12/10/19 12/10/19 Range/Units 19:45 07:00 07:00 WBC 13.9 H (5.0-10.0) 10^3/uL RBC 4.67 (4.50-6.00) 10^6/uL Hgb 13.7 L (14.0-18.0) g/dL Hct 42.2 (40.0-54.0) % MCV 90.4 (82.0-94.0) fL MCH 29.3 (27.0-32.0) pg MCHC 32.5 L (33.0-38.0) g/dL RDW Coeff of Twan 15.3 H (11.0-15.0) % Plt Count 110 L (150-400) 10^3/uL Neut % (Auto) 82.2 (35-85) % Lymph % (Auto) 6.6 L (10-55) % [place] % (Auto) 11.0 (0-16) % Eos % (Auto) 0.1 (0-5) % Baso % (Auto) 0.1 (0-3) % Neut # (Auto) 11.39 H (1.80-7.00) 10^3/uL Lymph # (Auto) 0.91 L (1.00-4.80) 10^3/uL [place] # (Auto) 1.52 H (0.00-0.80) 10^3/uL Eos # (Auto) 0.01 (0.00-0.45) 10^3/uL Baso # (Auto) 0.02 10^3/uL Sodium 141 (136-145) mEq/L Potassium 3.8 (3.5-5.0) mEq/L Chloride 104 (98-106) mEq/L Carbon Dioxide 28 (21-32) mmol/L BUN 26 H (7-18) mg/dL Creatinine 1.1 (0.7-1.3) mg/dL Est Cr Clr Drug Dosing 64.60 mL/min Estimated GFR (MDRD) > 60 (>=60) mL/min Glucose 148 H (75-99) mg/dL POC Glucose (75-105) mg/dl Lactic Acid 1.2 (0.4-2.0) mmol/L Calcium 8.4 (8.4-10.1) mg/dL Total Bilirubin (0.0-1.0) mg/dL AST (15-37) U/L ALT (12-78) U/L Alkaline Phosphatase (46-116) U/L C-Reactive Protein 22.9 H (0.2-0.8) mg/dL Total Protein (6.4-8.2) g/dL Albumin (3.4-5.0) g/dL Urine Color (YELLOW) Urine Appearance (CLEAR) Urine pH (4.5-8.0) Ur Specific [place] (1.003-1.020) Urine Protein (NEGATIVE) mg/dL Urine Glucose (UA) (NEGATIVE) mg/dL Urine Ketones (NEGATIVE) mg/dL Urine Occult Blood (NEGATIVE) Urine Nitrite (NEGATIVE) Urine Bilirubin (NEGATIVE) Urine Urobilinogen (0.2-1.0) EU/dL Ur Leukocyte Esterase (NEGATIVE) Urine RBC (0-5) /HPF Urine WBC (0-5) /HPF Ur Epithelial Cells (NOT SEEN) /HPF Urine Bacteria (NOT SEEN) /HPF Urine Mucus (NOT SEEN) /HPF 12/10/19 Range/Units 07:30 WBC (5.0-10.0) 10^3/uL RBC (4.50-6.00) 10^6/uL Hgb (14.0-18.0) g/dL Hct (40.0-54.0) % MCV (82.0-94.0) fL MCH (27.0-32.0) pg MCHC (33.0-38.0) g/dL RDW Coeff of Twan (11.0-15.0) % Plt Count (150-400) 10^3/uL Neut % (Auto) (35-85) % Lymph % (Auto) (10-55) % [place] % (Auto) (0-16) % Eos % (Auto) (0-5) % Baso % (Auto) (0-3) % Neut # (Auto) (1.80-7.00) 10^3/uL Lymph # (Auto) (1.00-4.80) 10^3/uL [place] # (Auto) (0.00-0.80) 10^3/uL Eos # (Auto) (0.00-0.45) 10^3/uL Baso # (Auto) 10^3/uL Sodium (136-145) mEq/L Potassium (3.5-5.0) mEq/L Chloride (98-106) mEq/L Carbon Dioxide (21-32) mmol/L BUN (7-18) mg/dL Creatinine (0.7-1.3) mg/dL Est Cr Clr Drug Dosing mL/min Estimated GFR (MDRD) (>=60) mL/min Glucose (75-99) mg/dL POC Glucose 134 H (75-105) mg/dl Lactic Acid (0.4-2.0) mmol/L Calcium (8.4-10.1) mg/dL Total Bilirubin (0.0-1.0) mg/dL AST (15-37) U/L ALT (12-78) U/L Alkaline Phosphatase (46-116) U/L C-Reactive Protein (0.2-0.8) mg/dL Total Protein (6.4-8.2) g/dL Albumin (3.4-5.0) g/dL Urine Color (YELLOW) Urine Appearance (CLEAR) Urine pH (4.5-8.0) Ur Specific [place] (1.003-1.020) Urine Protein (NEGATIVE) mg/dL Urine Glucose (UA) (NEGATIVE) mg/dL Urine Ketones (NEGATIVE) mg/dL Urine Occult Blood (NEGATIVE) Urine Nitrite (NEGATIVE) Urine Bilirubin (NEGATIVE) Urine Urobilinogen (0.2-1.0) EU/dL Ur Leukocyte Esterase (NEGATIVE) Urine RBC (0-5) /HPF Urine WBC (0-5) /HPF Ur Epithelial Cells (NOT SEEN) /HPF Urine Bacteria (NOT SEEN) /HPF Urine Mucus (NOT SEEN) /HPF [place] Results Last 24 Hours: Microbiology 12/09/19 19:25 Urine Culture - Preliminary Urine, Voided Gram Positive Cocci Med Orders - Current: Current Medications Acetaminophen (Tylenol) 650 mg PO Q4H PRN PRN Reason: Pain (Mild 1-3)/fever Last Admin: 12/10/19 06:05 Dose: 650 mg Allopurinol (Zyloprim) 300 mg PO Q48H [facility] Aspirin (Halfprin) 81 mg PO DAILY [facility] Last Admin: 12/10/19 07:40 Dose: 81 mg Ceftriaxone Sodium (Rocephin) 1 gm IVPUSH Q24H [facility] Enoxaparin Sodium (Lovenox) 40 mg SUBCUT Q24H [facility] Last Admin: 12/09/19 22:12 Dose: 40 mg Furosemide (Lasix) 20 mg PO DAILY [facility] Last Admin: 12/10/19 07:36 Dose: 20 mg Sodium Chloride (Normal Saline) 1,000 mls @ 100 mls/hr IV ASDIRECTED [facility] Last Admin: 12/10/19 07:20 Dose: 100 mls/hr Lisinopril (Prinivil) 2.5 mg PO DAILY [facility] Last Admin: 12/10/19 07:38 Dose: 2.5 mg Metformin HCl (Glucophage) 500 mg PO BIDMEALS [facility] Last Admin: 12/10/19 07:36 Dose: 500 mg Non-Formulary Medication (Multivits,-,Other Min [Complete Multivitamin]) 1 tab PO DAILY [facility] Last Admin: 12/10/19 07:41 Dose: Not Given Non-Formulary Medication (Ubidecarenone [Co Q-10]) 1 tab PO DAILY [facility] Last Admin: 12/10/19 07:42 Dose: Not Given Meloxicam 15 Mg Tab (Own Med) 15 mg PO DAILY [facility] Last Admin: 12/10/19 07:37 Dose: 15 mg Rosuvastatin [ Crestor] 20 Mg Tab * *Own Med 10 mg PO BEDTIME [facility] Phenazopyridine HCl (Urinary Pain Relief) 95 mg PO TIDPC [facility] Last Admin: 12/10/19 08:27 Dose: 95 mg Discontinued Medications Acetaminophen (Tylenol) 650 mg PO NOW ONE Stop: 12/09/19 19:24 Last Admin: 12/09/19 20:46 Dose: 650 mg Allopurinol (Zyloprim) 300 mg PO Q48H [facility] Last Admin: 12/09/19 22:11 Dose: Not Given Ceftriaxone Sodium (Rocephin) 2 gm IVPUSH ONETIME ONE Stop: 12/09/19 20:16 Last Admin: 12/09/19 20:46 Dose: 2 gm Furosemide (Lasix) 20 mg PO DAILY [facility] Sodium Chloride (Normal Saline) 1,000 mls @ 100 mls/hr IV ASDIRECTED [facility] Last Admin: 12/09/19 20:46 Dose: 100 mls/hr Lisinopril (Prinivil) 2.5 mg PO DAILY [facility] Metformin HCl (Glucophage) 500 mg PO BID [facility] Non-Formulary Medication (Adalimumab [Humira Pen]) 0.8 ml IM ASDIRECTED [facility] Non-Formulary Medication (Meloxicam [Meloxicam]) 15 mg PO DAILY [facility] Non-Formulary Medication (Rosuvastatin [Crestor]) 10 mg PO DAILY [facility] Phenazopyridine HCl (Urinary Pain Relief) 95 mg PO TIDPC DANNY - Exam Quality Assessment: No: Supplemental Oxygen General: Alert, Oriented, Cooperative, No Acute Distress Neck: Supple, Trachea Midline Lungs: Clear to Auscultation, Normal Respiratory Effort Cardiovascular: Regular Rate, Regular Rhythm. No: Murmurs GI/Abdominal Exam: Normal Bowel Sounds, Soft, Non-Tender, No Distention. No: Tender Back Exam: Normal Inspection, Full Range of Motion. No: CVA Tenderness (L), CVA Tenderness (R) Extremities: Normal Inspection, Normal Range of Motion, Non-Tender, No Pedal Edema, Normal Capillary Refill Peripheral Pulses: 2+: Radial (L) Skin: Warm, Dry, Intact Neurological: No New Focal Deficit, Normal Gait, Normal Speech Psy/Mental Status: Alert, Normal Affect, Normal Mood Sepsis Event Note - Evaluation Sepsis Screening Result: No Definite Risk - Focused Exam Vital Signs: Vital Signs Temp Pulse Resp BP BP Pulse Ox 12/10/19 07:38 118/51 L 12/10/19 07:30 37.2 C 67 16 118/51 L 97 12/10/19 04:00 38.0 C 77 16 106/64 95 12/10/19 00:00 38.3 C H 73 16 97/56 L 97 Date Exam was Performed: 12/10/19 Time Exam was Performed: 09:43 - Problem List & Annotations (1) Fever SNOMED Code(s): 948216096 Code(s): R50.9 - FEVER, UNSPECIFIED Status: Acute Priority: Medium Current Visit: Yes Qualifiers: Fever type: unspecified Qualified Code(s): R50.9 - Fever, unspecified (2) Leukocytosis SNOMED Code(s): 494294415, 068577787 Code(s): D72.829 - ELEVATED WHITE BLOOD CELL COUNT, UNSPECIFIED Status: Acute Priority: Medium Current Visit: Yes Qualifiers: Leukocytosis type: unspecified Qualified Code(s): D72.829 - Elevated white blood cell count, unspecified (3) UTI, Urinary tract infectious disease SNOMED Code(s): 29226172 Code(s): N39.0 - URINARY TRACT INFECTION, SITE NOT SPECIFIED Status: Acute Priority: High Current Visit: Yes - Problem List Review Problem List Initiated/Reviewed/Updated: Yes - My Orders Last 24 Hours: My Active Orders 12/09/19 19:22 Blood Culture x2 Reflex Set [OM.PC] Stat 12/09/19 19:25 CULTURE URINE [RM] Stat 12/09/19 19:40 CULTURE BLOOD [BC] Stat 12/09/19 19:45 CULTURE BLOOD [BC] Stat 12/09/19 20:13 CXR [Chest 2V] [CR] Stat 12/09/19 20:49 Patient Status [ADT] Routine Blood Glucose Check, Bedside [RC] 0730,1130,1700,2000 Up ad [place] [RC] .PRN Vital Signs [RC] 0000,0400,0800,1200,1600,2000 Acetaminophen [Tylenol] 650 mg PO Q4H PRN Glucose Management Sub Q Reflex [OM.PC] Click To Edit Resuscitation Status Routine 12/09/19 20:50 Intake and Output [RC] 0600,1800 12/09/19 21:00 Enoxaparin [Lovenox] 40 mg SUBCUT Q24H Sodium Chloride 0.9% [Normal Saline] 1,000 ml IV ASDIRECTED 12/09/19 23:45 Phenazopyridine [Urinary Pain Relief] 95 mg PO TIDPC 12/10/19 08:00 Aspirin [Halfprin] 81 mg PO DAILY Furosemide [Lasix] 20 mg PO DAILY Meloxicam [Meloxicam] 15 mg PO DAILY Multivits,Th w-Fe,Other Min [Complete Multivitamin] 1 tab PO DAILY Ubidecarenone [Co Q-10] 1 tab PO DAILY lisinopriL [Prinivil] 2.5 mg PO DAILY metFORMIN [Glucophage] 500 mg PO BIDMEALS 12/10/19 20:00 Rosuvastatin [Crestor] 10 mg PO BEDTIME 12/10/19 21:00 cefTRIAXone [Rocephin] 1 gm IVPUSH Q24H 12/10/19 Breakfast Consistent Carbohydrate Diet [DIET] 12/11/19 08:00 allopurinoL [Zyloprim] 300 mg PO Q48H - Plan Plan:: the pts WBC is down slightly, his CRP doubled, he continued to run a fever through the night. he still has pain/burning with urination. will keep in the hospital today and reassess labs in the am. will continue IVF and IV Rocephin. will continue tylenol and motrin to manage any fever. cx shows >100,00cc of gm pos cocci.
[2019-12-10] MEDS: ROSUVASTATIN 20 MG PO SCH (19:42)
[2019-12-10] MEDS: Enoxaparin 40 MG/0.4 ML Syringe SUBCUT SCH (20:10)
[2019-12-10] MEDS ORDERED: cefTRIAXone 1 GM Vial IVPUSH SCH (21:00)
[2019-12-11] MEDS: Sodium Chloride 0.9% 1,000 ML IV SCH (05:51)
[2019-12-11] MEDS: MELOXICAM 15 MG PO SCH (07:53)
[2019-12-11] MEDS: metFORMIN 500 MG Tab**OWN MED PO SCH ×2 (07:54→17:40)
[2019-12-11] MEDS: Furosemide 20 MG Tab **OWN MED PO SCH (07:54)
[2019-12-11] MEDS: Lisinopril 5 MG Tab**OWN MED PO SCH (07:55)
[2019-12-11] MEDS: [UNRECOGNIZED DRUG - OTHER] PO SCH (07:55)
[2019-12-11] MEDS: Aspirin 81 MG Tab.EC PO SCH (07:55)
[2019-12-11] MEDS: MULTIVITS TH W FE OTHER MIN PO SCH (07:55)
[2019-12-11 07:56] LABS: CHLORIDE,CL 106 mEq/L (98-106); SODIUM,NA 142 mEq/L (136-145)
[2019-12-11] MEDS: Non-Formulary Medication 1 Each (Ubidecarenone [Co Q-10] 1 TAB) PO SCH (07:56)
[2019-12-11] MEDS: Phenazopyridine 95 MG Tab PO SCH ×3 (07:58→17:42)
[2019-12-11] MEDS ORDERED: Allopurinol 300 MG Tab **OWN MED PO SCH (08:00)
[2019-12-11] MEDS: Levofloxacin/Dextrose 5%-Water 500 MG in Premix Bag 1 BAG IV SCH (08:58)
--- NOTE | 2019-12-11 11:37 | PN ---
DATE: 12/11/2019 S: Mr. Bean was admitted for UTI and possible sepsis this weekend on Wednesday night. Over the last 2 days, he has had some low-grade temps but feels much better. He has had normal blood pressures and sats. CRP continues to trend up and urine culture today shows enterococcus. He has been on Rocephin since admission. O: GENERAL: This morning, this gentleman is pleasant, alert and cooperative, appears in no distress. HEENT: Grossly benign. NECK: Veins are flat. LUNGS: Clear. CARDIAC: Tones are regular. ABDOMEN: He has no flank pain to palpation. Really no abdominal pain to palpation. ASSESSMENT: 1. ENTEROCOCCUS URINARY TRACT INFECTION. 2. TYPE 2 DIABETES. 3. HYPERTENSION, CONTROLLED. 4. HISTORY OF RHEUMATOID ARTHRITIS. P: We will switch him to Levaquin, urine culture showed sensitivity. Stop his Rocephin. Continue low-rate IV fluids and continue to monitor him at this point. DENIA/SHORTY /[id number]
[2019-12-11] MEDS: ROSUVASTATIN 20 MG PO SCH (19:36)
[2019-12-11] MEDS: Enoxaparin 40 MG/0.4 ML Syringe SUBCUT SCH (20:21)
[2019-12-12] MEDS: Sodium Chloride 0.9% 1,000 ML IV SCH (00:47)
[2019-12-12] MEDS: MELOXICAM 15 MG PO SCH (07:27)
[2019-12-12] MEDS: Aspirin 81 MG Tab.EC PO SCH (07:27)
[2019-12-12] MEDS: metFORMIN 500 MG Tab**OWN MED PO SCH (07:27)
[2019-12-12] MEDS: Furosemide 20 MG Tab **OWN MED PO SCH (07:27)
[2019-12-12] MEDS: Lisinopril 5 MG Tab**OWN MED PO SCH (07:28)
[2019-12-12] MEDS: Non-Formulary Medication 1 Each (Ubidecarenone [Co Q-10] 1 TAB) PO SCH (07:28)
[2019-12-12] MEDS: [UNRECOGNIZED DRUG - OTHER] PO SCH (07:28)
[2019-12-12] MEDS: MULTIVITS TH W FE OTHER MIN PO SCH (07:28)
[2019-12-12] MEDS: Phenazopyridine 95 MG Tab PO SCH ×2 (08:03→11:37)
[2019-12-12] MEDS: Levofloxacin/Dextrose 5%-Water 500 MG in Premix Bag 1 BAG IV SCH (08:03)
[2019-12-12 11:37] VITALS: BP 152/80; PULSE 61
--- NOTE | 2019-12-12 13:08 | DISCH ---
ADMISSION DIAGNOSES: 1. Fever. 2. Leukocytosis. 3. Urinary tract infection. DISCHARGE DIAGNOSIS: 1. ENTEROCOCCUS URINARY TRACT INFECTION. 2. TYPE 2 DIABETES. 3. HYPERTENSION. 4. RHEUMATOID ARTHRITIS. HISTORY: The patient was admitted for urinary frequency, low-grade temps, and typical signs and symptoms of urinary tract infection. He was seen by emergency room provider and admitted for IV antibiotics and fluids. HOSPITAL COURSE: The patient did well while here. He did not have any significant complications, was essentially afebrile during his entire stay within 12 hours of admission. He had normal blood pressures. No signs of sepsis. Urine culture came back with Enterococcus. He was initially started on IV Rocephin that was switched to IV Levaquin which he got 2 doses of. This morning, he has been afebrile for 48 hours. He is clinically doing well and appears to be stable for discharge on home medications. He will go home on a 7- day course of Levaquin starting tomorrow. He will have followup with his primary provider, Sanam Velazquez in the clinic for repeat CBC, panel 8, urine, and CRP. COMPLICATIONS: During his stay were none. CONSULTATIONS: None. DISPOSITION: Discharged home. OLY /[id number]
== END 2019-12-12 12:51 | disposition home or self-care (01) ==
LOC: SUPCPDRO 18:50 → CC.ED 18:50 → CC.MS 20:49 → UNDOADMOB 21:05 → CC.MS 21:05
PROVIDERS: ADMIT Nurse Practitioner; ATTEND Family Medicine
DX: N39.0 Urinary tract infection, site not specified (principal); B95.2 Enterococcus as the cause of diseases classified elsewhere; D72.829 Elevated white blood cell count, unspecified; I10 Essential (primary) hypertension; E11.9 Type 2 diabetes mellitus without complications; E78.00 Pure hypercholesterolemia, unspecified; Z79.82 Long term (current) use of aspirin; Z79.899 Other long term (current) drug therapy; Z79.84 Long term (current) use of oral hypoglycemic drugs; Z88.0 Allergy status to penicillin; Z87.39 Personal history of other diseases of the musculoskeletal system and connective tissue
CPT/HCPCS: 36415; 71046; 80048; 80053; 81001; 82962; 83605; 85025; 86140; 87040; 87086; 87088; 87186; 96361; 96365; 96366; 96372; 96375; 96376; 99217; 99220; 99225; 99284; A9270; G0378; J0696; J1650; J1956; J7030; 96374

== ENCOUNTER 2023-10-22 07:23 | Day surgery (SDC) | payer OTHER ==
[2023-10-22] MEDS: Lactated Ringers 1,000 ML IV SCH (07:38)
[2023-10-22] MEDS ORDERED: fentaNYL 50 MCG/ML SDV ONE (08:10)
[2023-10-22] MEDS ORDERED: Ketamine 200 MG/20 ML MDV ONE (08:10)
[2023-10-22] MEDS ORDERED: Propofol 200 MG/20 ML SDV ONE (08:10)
[2023-10-22 09:15] VITALS: BP 122/80; PULSE 55
== END 2023-10-22 09:31 | disposition home or self-care (01) ==
LOC: CC.SDS 07:23
PROVIDERS: ATTEND Family Medicine
DX: Z12.11 Encounter for screening for malignant neoplasm of colon (principal); K63.5 Polyp of colon; K57.30 Diverticulosis of large intestine without perforation or abscess without bleeding; K62.1 Rectal polyp; I10 Essential (primary) hypertension; I48.91 Unspecified atrial fibrillation; E11.9 Type 2 diabetes mellitus without complications; G47.33 Obstructive sleep apnea (adult) (pediatric); Z88.0 Allergy status to penicillin; Z79.899 Other long term (current) drug therapy; Z86.010 Personal history of colon polyps
CPT/HCPCS: 00811; 45385; 88305; 99100; J2704; J3010; J3490; J7120

== ENCOUNTER 2025-01-26 21:49 | Emergency (ER) | payer MEDICARE, BC ==
[2025-01-26 22:25] LABS: BASOPHILS ABSOLUTE AUTO 0.01 10^3/uL (0.00-0.50); BASOPHILS PERCENT AUTO 0.1 % (0-1); EOSINOPHILS ABSOLUTE AUTO 0.32 10^3/uL (0.00-1.50); EOSINOPHILS PERCENT AUTO 2.9 % (0-6); HEMATOCRIT 45.4 % (42.0-52.0); HEMOGLOBIN 14.7 g/dL (14.0-18.0); IMMATURE GRAN ABSOLUTE AUTO 0.02 10^3/uL (0.00-0.49); IMMATURE GRAN PERCENT AUTO 0.2 % (0.0-4.9); LYMPHOCYTES ABSOLUTE AUTO 1.22 10^3/uL (0.60-5.00); LYMPHOCYTES PERCENT AUTO 11.2 % (24-44); MEAN CORPUSCULAR HGB CONC 32.4 g/dL (32.0-36.0); MEAN CORPUSCULAR VOLUME 89.5 fL (83.0-97.0); MONOCYTES ABSOLUTE AUTO 1.05 10^3/uL (0.00-1.50); MONOCYTES PERCENT AUTO 9.6 % (0-10); NEUTROPHILS ABSOLUTE AUTO 8.27 x10^3/uL (1.80-8.00); PLATELET COUNT,PLT 129 10^3/uL (150-400); RED BLOOD CELL COUNT 5.07 x10^6/uL (4.50-6.00); WHITE BLOOD CELL COUNT,WBC 10.9 10^3/uL (4.0-11.0)
[2025-01-26 22:26] LABS: APPEARANCE,URINE CLEAR (CLEAR); BILIRUBIN,URINE NEGATIVE (NEGATIVE); COLOR,URINE YELLOW (YELLOW); GLUCOSE,URINE NEGATIVE (NEGATIVE); KETONES,URINE NEGATIVE (NEGATIVE); LEUKOCYTE ESTERASE,URINE NEGATIVE (NEGATIVE); NITRITE,URINE NEGATIVE (NEGATIVE); OCCULT BLOOD,URINE NEGATIVE (NEGATIVE); PROTEIN,URINE NEGATIVE (NEGATIVE)
[2025-01-26 22:31] VITALS: BP 102/62; PULSE 83
[2025-01-26 22:51] LABS: ALBUMIN 3.7 g/dL (3.4-5.0); BILIRUBIN TOTAL 0.6 mg/dL (0.0-1.0); C-REACTIVE PROTEIN 9.14 mg/dL (<=0.50); CALCIUM 9.3 mg/dL (8.4-10.1); CREATININE 1.3 mg/dL (0.7-1.3); EST CRCL DRUG DOSING (CG) 50.7 mL/min; POTASSIUM,K 4.4 mEq/L (3.5-5.0); PROTEIN TOTAL,TP 7.4 g/dL (6.4-8.2)
[2025-01-26] MEDS: methylPREDNISolone Sodium Succinate 125 MG/2 ML SDV IM STA (23:30)
[2025-01-26] MEDS: Lidocaine 1% 5 ML VIAL INJECT ONE (23:31)
[2025-01-26] MEDS: cefTRIAXone 1 GM Vial IM ONE (23:31)
[2025-01-26] MEDS: Take Home: Benzonatate 100 MG, 6 Cap Pack PO ONE (23:39)
== END 2025-01-26 23:50 | disposition home or self-care (01) ==
LOC: CC.ED 21:49
DX: J20.9 Acute bronchitis, unspecified (principal); I10 Essential (primary) hypertension; E78.00 Pure hypercholesterolemia, unspecified; E11.9 Type 2 diabetes mellitus without complications; Z88.0 Allergy status to penicillin; Z79.84 Long term (current) use of oral hypoglycemic drugs; Z79.899 Other long term (current) drug therapy
CPT/HCPCS: 36415; 71046; 80053; 81003; 83880; 85025; 86140; 96372; 99283; 99285; A9270-GY; J0696; J2003; J2919